=== PATIENT | male | born 1955 | race Caucasian/White ===

== ENCOUNTER 2021-04-27 23:34 | Inpatient (IN) ==
[2021-04-27] MEDS ORDERED: ROCURONIUM 100 MG/10 ML VIAL IV ONE (23:41)
[2021-04-27] MEDS ORDERED: ROCURONIUM 100 MG/10 ML VIAL IV STA (23:54)
[2021-04-27] MEDS ORDERED: ETOMIDATE 20 MG/10 ML VIAL IV STA (23:54)
[2021-04-28 00:29] LABS: ABG Base Excess -2.3 MMOL/L (-2.5-2.5); ABG HCO3 25.8 MMOL/L (20-26); ABG Oxygen Saturation 97.6 % (95-100); ABG PH 7.223 (7.35-7.45); ABG PO2 127.9 MM HG (80-95); ABG TCO2 27.7 MMOL/L (23-27)
[2021-04-28] MEDS ORDERED: fentaNYL 100 MCG/2 ML VIAL IV STA (00:42)
[2021-04-28 00:52] LABS: Bilirubin,Total 0.6 MG/DL (0.20-1.00); Calcium 7.6 MG/DL (8.5-10.1); Osmolality,Calculated 282.7 MOS/KG (273-304); Total Protein 6.2 G/DL (6.4-8.2)
[2021-04-28 01:05] LABS: Basophils # 0.1 10*3/uL (0.0-0.2); Basophils % 0.3 % (0.0-0.8); Eosinophils # 0.1 10*3/uL (0.0-0.87); Eosinophils % 0.3 % (0.00-10.9); Hematocrit 26.2 VOL% (42.0-52.0); Hemoglobin 8.1 GM/DL (14.0-18.0); Immature Granulocytes % 3.3 %; Immature Granulocytes Absolute 1.03 #; Lymphocytes # 9.1 10*3/uL (1.4-4.0); Lymphocytes % 28.6 % (21.2-54.2); Mean Corpuscular HGB Conc 30.9 GM/DL (32-36); Mean Corpuscular Volume 113.9 FL (87-102); Mean Platelet Volume 12.6 FL (9.6-12.0); NRBC # 0.14 10*3/uL; Neutrophils % 60.5 % (38.7-73.9); Platelet Count 106 T/CUMM (130-400); Red Cell Distribution Width 18.3 % (9.3-17.3); White Blood Count 31.6 T/CUMM (4-12)
[2021-04-28 01:11] LABS: INR 1.2; PT Patient Result 13.3 SECS (10.5-12.0); Partial Thromboplastin Time 25.9 SECS (23.9-33.8)
[2021-04-28 01:12] LABS: Bilirubin,Urine Negative (Negative); Blood, Urine Negative (Negative); Glucose,Urine (UA) Negative (Negative); Hyaline Casts,Urine 6 /LPF (0-3); Ketones,Urine Negative (Negative); Mucus,Urine Occasional /LPF (Occasional); Nitrite,Urine Negative (Negative); Protein,Urine Negative; RBC,Urine 1 /HPF (0-4); Sperm,Urine Occasional /HPF (Negative); Urine Appearance CLEAR (Clear); Urine Color Yellow (Yellow); Urine Specific Gravity 1.008 (1.001-1.035); Urine Urobilinogen < 2.0 EU/DL (0.2-1.0)
[2021-04-28] MEDS ORDERED: ROCURONIUM 100 MG/10 ML VIAL IV STA (01:15)
[2021-04-28] MEDS ORDERED: PIPERACILLIN/TAZOBACTAM 3,375 MG in SODIUM CHLORIDE 0.9% 100 ML IV STA (01:37)
[2021-04-28] MEDS ORDERED: ONDANSETRON 4 MG/2 ML VIAL IV PRN (01:46)
[2021-04-28] MEDS ORDERED: ALBUTEROL 2.5 MG/3 ML NEB RESP TX PRN (01:46)
[2021-04-28 02:25] LABS: Eosinophils 1 % (0-10); Lymphocytes 20 % (20-55); Segmented Neutrophils 72 % (50-85); Total Cells Counted 100
[2021-04-28 02:26] LABS: Macrocytosis 1+; Platelet Estimate Normal; Polychromasia 1+
[2021-04-28 02:27] LABS: Anisocytosis 1+; Stomatocytes Few
[2021-04-28] MEDS ORDERED: AZITHROMYCIN INJ 500 MG in SODIUM CHLORIDE 0.9% 250 ML IV ONE (02:28)
[2021-04-28] MEDS ORDERED: DIGOXIN 0.5 MG/2 ML AMP IV ONE (02:28)
[2021-04-28] MEDS ORDERED: methylPREDNISolone SOD SUC 40 MG/1 ML VIAL IV SCH (02:30)
[2021-04-28] MEDS ORDERED: SODIUM CHLOR 0.45% KCL 20 MEQ 20 MEQ/1,000 ML BAG IV SCH (02:30)
[2021-04-28] MEDS: PANTOPRAZOLE 40 MG VIAL IV SCH (02:55)
[2021-04-28] MEDS: cefTRIAXone 1,000 MG in SODIUM CHLORIDE 0.9% 100 ML IV SCH (03:03)
[2021-04-28] MEDS ORDERED: SODIUM CHLORIDE 0.9% 1,000 ML IV ONE (03:15)
[2021-04-28] MEDS: ENOXAPARIN 40 MG/0.4 ML SYRINGE SUBCUT SCH (03:41)
[2021-04-28 04:02] LABS: Basophils % 0.1 % (0.0-0.8); Eosinophils % 0.1 % (0.00-10.9); Hematocrit 24.6 VOL% (42.0-52.0); Hemoglobin 7.6 GM/DL (14.0-18.0); Immature Granulocytes % 1.7 %; Immature Granulocytes Absolute 0.38 #; Lymphocytes # 1.8 10*3/uL (1.4-4.0); Lymphocytes % 8.2 % (21.2-54.2); Mean Corpuscular HGB Conc 30.9 GM/DL (32-36); Mean Corpuscular Volume 112.3 FL (87-102); Mean Platelet Volume 11.3 FL (9.6-12.0); Monocytes % 7.4 % (1.7-12.7); NRBC # 0.04 10*3/uL; Neutrophils % 82.5 % (38.7-73.9); Platelet Count 89 T/CUMM (130-400); Red Blood Count 2.19 MC/CUMM (3.8-5.5); Red Cell Distribution Width 18.3 % (9.3-17.3); White Blood Count 21.9 T/CUMM (4-12)
[2021-04-28 04:07] LABS: Albumin 2.8 G/DL (3.4-5.0); Bilirubin,Total 1.1 MG/DL (0.20-1.00); Calcium 7.8 MG/DL (8.5-10.1); Osmolality,Calculated 277.7 MOS/KG (273-304); Potassium 4.4 MMOL/L (3.5-5.1); Total Protein 6.6 G/DL (6.4-8.2)
[2021-04-28 04:31] LABS: Hypochromasia 1+; Lymphocytes 10 % (20-55); Segmented Neutrophils 84 % (50-85); Total Cells Counted 100
[2021-04-28 04:32] LABS: Anisocytosis 1+; Macrocytosis 1+; Polychromasia Slight; Tear Drop Cells Slight
[2021-04-28] MEDS ORDERED: MAGNESIUM SULF RIDER 4 GM/100 ML PREMIX IV ONE (04:32)
[2021-04-28 04:33] LABS: Platelet Estimate Decreased
[2021-04-28 04:34] LABS: ABG Base Excess -1.6 MMOL/L (-2.5-2.5); ABG Oxygen Saturation 92.5 % (95-100); ABG PO2 81.2 MM HG (80-95); ABG TCO2 26.4 MMOL/L (23-27)
[2021-04-28 04:37] LABS: ABG PCO2 70.8 MM HG (35-48); ABG PH 7.197 (7.35-7.45)
[2021-04-28] MEDS: MIDAZOLAM 100 MG in SODIUM CHLORIDE 0.9% 80 ML IV PRN ×2 (05:02→16:30)
[2021-04-28] MEDS: SODIUM CHLORIDE 0.45% 1,000 ML IV SCH ×2 (05:02→15:26)
[2021-04-28] MEDS ORDERED: ROCURONIUM 100 MG/10 ML VIAL IV PRN (07:31)
[2021-04-28] MEDS ORDERED: MAGNESIUM SULF RIDER 4 GM/100 ML PREMIX IV PRN (07:49)
[2021-04-28] MEDS ORDERED: SODIUM CHLORIDE 0.9% 1,000 ML IV PRN (08:16)
[2021-04-28] MEDS: ROCURONIUM 500 MG in SODIUM CHLORIDE 0.9% 500 ML IV PRN (08:20)
[2021-04-28] MEDS: methylPREDNISolone SOD SUC 40 MG/1 ML VIAL IV SCH ×3 (08:50→20:59)
[2021-04-28] MEDS ORDERED: PHENYLEPHRINE DRIP 40 MG/250 ML PREMIX IV ONE (09:06)
[2021-04-28 09:10] LABS: ABG Base Excess -0.1 MMOL/L (-2.5-2.5); ABG HCO3 26.2 MMOL/L (20-26); ABG Oxygen Saturation 99.1 % (95-100); ABG PCO2 51.9 MM HG (35-48); ABG PH 7.321 (7.35-7.45); ABG PO2 207.2 MM HG (80-95); ABG TCO2 27.8 MMOL/L (23-27)
[2021-04-28] MEDS: PHENYLEPHRINE DRIP 40 MG/250 ML PREMIX IV PRN ×2 (09:36→22:30)
[2021-04-28 15:28] LABS: Hematocrit 25.9 VOL% (42.0-52.0); Hemoglobin 8.4 GM/DL (14.0-18.0)
[2021-04-28] MEDS: DESITIN 4OZ/NYSTATIN 15 GRAM MIXTURE PASTE TOP SCH (21:03)
[2021-04-28] MEDS: AZITHROMYCIN INJ 250 MG in SODIUM CHLORIDE 0.9% 250 ML IV SCH (21:03)
[2021-04-29] MEDS: PANTOPRAZOLE 40 MG VIAL IV SCH (02:10)
[2021-04-29] MEDS: SODIUM CHLORIDE 0.45% 1,000 ML IV SCH ×4 (02:19→22:41)
[2021-04-29] MEDS: cefTRIAXone 1,000 MG in SODIUM CHLORIDE 0.9% 100 ML IV SCH (02:20)
[2021-04-29] MEDS: methylPREDNISolone SOD SUC 40 MG/1 ML VIAL IV SCH ×4 (02:50→20:20)
[2021-04-29] MEDS: ENOXAPARIN 40 MG/0.4 ML SYRINGE SUBCUT SCH (02:57)
[2021-04-29 03:08] LABS: ABG Base Excess 0.4 MMOL/L (-2.5-2.5); ABG HCO3 25.8 MMOL/L (20-26); ABG PH 7.367 (7.35-7.45); ABG PO2 96.8 MM HG (80-95); ABG TCO2 27.2 MMOL/L (23-27)
[2021-04-29 03:57] LABS: Basophils % 0.1 % (0.0-0.8); Hematocrit 22.7 VOL% (42.0-52.0); Hemoglobin 7.2 GM/DL (14.0-18.0); Immature Granulocytes % 2.7 %; Immature Granulocytes Absolute 0.58 #; Lymphocytes # 1.5 10*3/uL (1.4-4.0); Mean Corpuscular HGB Conc 31.7 GM/DL (32-36); Mean Corpuscular Volume 108.6 FL (87-102); Mean Platelet Volume 10.9 FL (9.6-12.0); Monocytes % 3.2 % (1.7-12.7); NRBC # 0.04 10*3/uL; Platelet Count 102 T/CUMM (130-400); Red Blood Count 2.09 MC/CUMM (3.8-5.5); Red Cell Distribution Width 18.4 % (9.3-17.3); White Blood Count 21.5 T/CUMM (4-12)
[2021-04-29 04:19] LABS: Albumin 2.5 G/DL (3.4-5.0); Bilirubin,Total 0.5 MG/DL (0.20-1.00); Calcium 7.6 MG/DL (8.5-10.1); Osmolality,Calculated 277.8 MOS/KG (273-304); Potassium 4.4 MMOL/L (3.5-5.1); Total Protein 5.8 G/DL (6.4-8.2)
[2021-04-29 07:22] LABS: Band Neutrophils 9 % (0-10); Lymphocytes 8 % (20-55); Nucleated Red Blood Cells 1 (0-5); Platelet Estimate Adequate; Segmented Neutrophils 80 % (50-85); Smudge Cells Few; Total Cells Counted 100
[2021-04-29 07:23] LABS: Anisocytosis 3+; Macrocytosis 1+; Polychromasia Slight
[2021-04-29] MEDS: MIDAZOLAM 100 MG in SODIUM CHLORIDE 0.9% 80 ML IV PRN ×2 (09:13→21:30)
[2021-04-29] MEDS: DESITIN 4OZ/NYSTATIN 15 GRAM MIXTURE PASTE TOP SCH ×2 (09:20→20:35)
[2021-04-29] MEDS: ROCURONIUM 500 MG in SODIUM CHLORIDE 0.9% 500 ML IV PRN ×2 (10:45→20:20)
[2021-04-29] MEDS ORDERED: MAGNESIUM HYDROXIDE SUSP 30 ML UDCUP PO PRN (12:00)
[2021-04-29] MEDS: DOCUSATE SODIUM 100 MG/10 ML UDCUP PO SCH (12:33)
[2021-04-29] MEDS: AZITHROMYCIN INJ 250 MG in SODIUM CHLORIDE 0.9% 250 ML IV SCH (20:35)
[2021-04-30] MEDS: INSULIN REGULAR 100 UNIT/ML SUBCUT SCH ×4 (01:09→18:06)
[2021-04-30] MEDS: SODIUM CHLORIDE 0.45% 1,000 ML IV SCH ×5 (01:20→23:20)
[2021-04-30] MEDS: PANTOPRAZOLE 40 MG VIAL IV SCH (01:21)
[2021-04-30] MEDS: cefTRIAXone 1,000 MG in SODIUM CHLORIDE 0.9% 100 ML IV SCH (01:25)
[2021-04-30] MEDS: methylPREDNISolone SOD SUC 40 MG/1 ML VIAL IV SCH ×4 (03:20→20:58)
[2021-04-30] MEDS: ENOXAPARIN 40 MG/0.4 ML SYRINGE SUBCUT SCH (03:37)
[2021-04-30 03:42] LABS: Basophils % 0.1 % (0.0-0.8); Hematocrit 30.3 VOL% (42.0-52.0); Immature Granulocytes % 3.4 %; Immature Granulocytes Absolute 0.69 #; Lymphocytes # 0.9 10*3/uL (1.4-4.0); Lymphocytes % 4.7 % (21.2-54.2); Mean Corpuscular Volume 102.4 FL (87-102); Mean Platelet Volume 11.5 FL (9.6-12.0); Monocytes % 3.4 % (1.7-12.7); NRBC # 0.07 10*3/uL; Neutrophils % 88.4 % (38.7-73.9); Platelet Count 112 T/CUMM (130-400); Red Cell Distribution Width 20.1 % (9.3-17.3); White Blood Count 20.2 T/CUMM (4-12)
[2021-04-30 03:44] LABS: Hemoglobin 9.7 GM/DL (14.0-18.0); Red Blood Count 2.96 MC/CUMM (3.8-5.5)
[2021-04-30 03:59] LABS: Albumin 2.5 G/DL (3.4-5.0); Calcium 7.9 MG/DL (8.5-10.1); Osmolality,Calculated 285.4 MOS/KG (273-304); Potassium 4.7 MMOL/L (3.5-5.1); Total Protein 6.1 G/DL (6.4-8.2)
[2021-04-30 04:04] LABS: Anisocytosis 2+; Band Neutrophils 10 % (0-10); Lymphocytes 4 % (20-55); Myelocytes 1 %; Nucleated Red Blood Cells 1 (0-5); Platelet Estimate Adequate; Segmented Neutrophils 80 % (50-85); Total Cells Counted 100
[2021-04-30 04:05] LABS: Macrocytosis 1+; Polychromasia Slight
[2021-04-30 04:23] LABS: ABG Base Excess 1.3 MMOL/L (-2.5-2.5); ABG HCO3 25.6 MMOL/L (20-26); ABG Oxygen Saturation 99.8 % (95-100); ABG PCO2 47.9 MM HG (35-48); ABG PH 7.362 (7.35-7.45); ABG TCO2 24.8 MMOL/L (23-27); Allen Test Positive; Pt O2 Delivery Device Ventilator
[2021-04-30] MEDS: DOCUSATE SODIUM 100 MG/10 ML UDCUP PO SCH (09:28)
[2021-04-30] MEDS: DESITIN 4OZ/NYSTATIN 15 GRAM MIXTURE PASTE TOP SCH ×2 (09:28→21:40)
[2021-04-30] MEDS ORDERED: MORPHINE 2 MG/1 ML SYRINGE ONE (09:37)
[2021-04-30] MEDS: MORPHINE 2 MG/1 ML SYRINGE IV PRN ×3 (09:40→22:14)
[2021-04-30] MEDS: MIDAZOLAM 100 MG in SODIUM CHLORIDE 0.9% 80 ML IV PRN ×2 (09:56→23:02)
[2021-04-30] MEDS: ROCURONIUM 500 MG in SODIUM CHLORIDE 0.9% 500 ML IV PRN (10:09)
[2021-04-30 10:32] LABS: Allen Test Positive; Pt O2 Delivery Device Ventilator
[2021-04-30 10:38] LABS: ABG Base Excess 1.6 MMOL/L (-2.5-2.5); ABG HCO3 25.8 MMOL/L (20-26); ABG Oxygen Saturation 96.7 % (95-100); ABG PCO2 55.3 MM HG (35-48); ABG PH 7.322 (7.35-7.45); ABG PO2 92.7 MM HG (80-95); ABG TCO2 26.2 MMOL/L (23-27)
[2021-04-30 12:48] LABS: ABG Base Excess 2.8 MMOL/L (-2.5-2.5); ABG HCO3 26.9 MMOL/L (20-26); ABG Oxygen Saturation 96.9 % (95-100); ABG PH 7.376 (7.35-7.45); ABG PO2 88.6 MM HG (80-95); ABG TCO2 26.1 MMOL/L (23-27); Allen Test Positive; Pt O2 Delivery Device Ventilator
[2021-04-30] MEDS: AZITHROMYCIN INJ 250 MG in SODIUM CHLORIDE 0.9% 250 ML IV SCH (21:10)
[2021-05-01] MEDS: INSULIN REGULAR 100 UNIT/ML SUBCUT SCH ×4 (00:11→17:34)
[2021-05-01] MEDS: PANTOPRAZOLE 40 MG VIAL IV SCH (02:00)
[2021-05-01] MEDS: methylPREDNISolone SOD SUC 40 MG/1 ML VIAL IV SCH ×4 (02:03→20:40)
[2021-05-01] MEDS: ENOXAPARIN 40 MG/0.4 ML SYRINGE SUBCUT SCH (02:05)
[2021-05-01] MEDS: cefTRIAXone 1,000 MG in SODIUM CHLORIDE 0.9% 100 ML IV SCH (02:05)
[2021-05-01] MEDS: SODIUM CHLORIDE 0.45% 1,000 ML IV SCH ×5 (03:09→23:26)
[2021-05-01] MEDS: MORPHINE 2 MG/1 ML SYRINGE IV PRN ×4 (03:28→20:14)
[2021-05-01 04:07] LABS: ABG Base Excess 2.6 MMOL/L (-2.5-2.5); ABG HCO3 26.7 MMOL/L (20-26); ABG Oxygen Saturation 97.1 % (95-100); ABG PCO2 41.2 MM HG (35-48); ABG PH 7.427 (7.35-7.45); ABG TCO2 24.9 MMOL/L (23-27)
[2021-05-01 04:32] LABS: Basophils % 0.1 % (0.0-0.8); Hematocrit 28.9 VOL% (42.0-52.0); Hemoglobin 9.2 GM/DL (14.0-18.0); Immature Granulocytes % 2.5 %; Immature Granulocytes Absolute 0.45 #; Lymphocytes # 0.9 10*3/uL (1.4-4.0); Lymphocytes % 5.1 % (21.2-54.2); Mean Corpuscular HGB Conc 31.8 GM/DL (32-36); Mean Corpuscular Volume 105.1 FL (87-102); Mean Platelet Volume 11.8 FL (9.6-12.0); Monocytes % 3.2 % (1.7-12.7); NRBC # 0.06 10*3/uL; Neutrophils % 89.1 % (38.7-73.9); Platelet Count 120 T/CUMM (130-400); Red Blood Count 2.75 MC/CUMM (3.8-5.5); Red Cell Distribution Width 20.6 % (9.3-17.3); White Blood Count 17.7 T/CUMM (4-12)
[2021-05-01 04:54] LABS: Calcium 7.6 MG/DL (8.5-10.1); Osmolality,Calculated 287.3 MOS/KG (273-304); Potassium 4.6 MMOL/L (3.5-5.1)
[2021-05-01 04:57] LABS: Alanine Aminotransferase 28 U/L (16-61); Albumin 2.3 G/DL (3.4-5.0); Alkaline Phosphatase 97 U/L (45-117); Aspartate Amino Transferase 25 U/L (0-37); Bilirubin,Total < 0.39 MG/DL (0.20-1.00); Blood Urea Nitrogen 19 MG/DL (7-18); Calcium 7.9 MG/DL (8.5-10.1); Carbon Dioxide 30 MMOL/L (21-32); Estimated Glom Filtration Rate 111 ML/MIN; Glucose 203 MG/DL (74-106); Osmolality,Calculated 284.5 MOS/KG (273-304); Potassium 4.4 MMOL/L (3.5-5.1); Sodium 139 MMOL/L (136-145); Total Protein 5.5 G/DL (6.4-8.2)
[2021-05-01] MEDS: ROCURONIUM 500 MG in SODIUM CHLORIDE 0.9% 500 ML IV PRN (08:06)
[2021-05-01] MEDS: DOCUSATE SODIUM 100 MG/10 ML UDCUP PO SCH (08:06)
[2021-05-01] MEDS: DESITIN 4OZ/NYSTATIN 15 GRAM MIXTURE PASTE TOP SCH ×2 (08:07→20:57)
[2021-05-01 08:45] LABS: Anisocytosis 2+; Band Neutrophils 9 % (0-10); Lymphocytes 7 % (20-55); Macrocytosis 2+; Myelocytes 1 %; Platelet Estimate Adequate; Segmented Neutrophils 79 % (50-85); Total Cells Counted 100
[2021-05-01] MEDS ORDERED: SODIUM PHOSPHATE INJ 30 MMOL in SODIUM CHLORIDE 0.9% 250 ML IV ONE (12:00)
[2021-05-01] MEDS: MIDAZOLAM 100 MG in SODIUM CHLORIDE 0.9% 80 ML IV PRN (12:43)
[2021-05-01] MEDS ORDERED: cloNIDine 0.3 MG/24 HR PATCH TRANSDERM SCH (14:00)
[2021-05-01] MEDS: ENALAPRIL 2.5 MG/2 ML VIAL IV SCH ×2 (14:15→20:24)
[2021-05-01] MEDS: AZITHROMYCIN INJ 250 MG in SODIUM CHLORIDE 0.9% 250 ML IV SCH (20:57)
[2021-05-01] MEDS ORDERED: MORPHINE 2 MG/1 ML SYRINGE IV ONE (21:44)
[2021-05-02] MEDS: INSULIN REGULAR 100 UNIT/ML SUBCUT SCH ×4 (00:45→17:47)
[2021-05-02] MEDS: MIDAZOLAM 100 MG in SODIUM CHLORIDE 0.9% 80 ML IV PRN ×2 (01:29→15:32)
[2021-05-02] MEDS: methylPREDNISolone SOD SUC 40 MG/1 ML VIAL IV SCH ×4 (01:45→21:26)
[2021-05-02] MEDS: PANTOPRAZOLE 40 MG VIAL IV SCH (01:50)
[2021-05-02] MEDS: ENALAPRIL 2.5 MG/2 ML VIAL IV SCH ×2 (02:04→10:35)
[2021-05-02] MEDS: cefTRIAXone 1,000 MG in SODIUM CHLORIDE 0.9% 100 ML IV SCH (02:04)
[2021-05-02] MEDS: MORPHINE 2 MG/1 ML SYRINGE IV PRN ×2 (02:05→23:07)
[2021-05-02] MEDS: ENOXAPARIN 40 MG/0.4 ML SYRINGE SUBCUT SCH (02:42)
[2021-05-02 04:23] LABS: ABG Base Excess 3.3 MMOL/L (-2.5-2.5); ABG Oxygen Saturation 98.5 % (95-100); ABG PCO2 37.4 MM HG (35-48); ABG PH 7.476 (7.35-7.45); ABG PO2 150.6 MM HG (80-95); ABG TCO2 28.1 MMOL/L (23-27)
[2021-05-02] MEDS: ROCURONIUM 500 MG in SODIUM CHLORIDE 0.9% 500 ML IV PRN (04:30)
[2021-05-02 05:34] LABS: Basophils % 0.1 % (0.0-0.8); Hemoglobin 9.1 GM/DL (14.0-18.0); Immature Granulocytes % 2.4 %; Immature Granulocytes Absolute 0.39 #; Lymphocytes # 0.8 10*3/uL (1.4-4.0); Lymphocytes % 5.1 % (21.2-54.2); Mean Corpuscular HGB Conc 31.4 GM/DL (32-36); Mean Corpuscular Volume 106.2 FL (87-102); Mean Platelet Volume 11.4 FL (9.6-12.0); Monocytes % 3.4 % (1.7-12.7); NRBC # 0.08 10*3/uL; Platelet Count 131 T/CUMM (130-400); Red Blood Count 2.73 MC/CUMM (3.8-5.5); White Blood Count 16.3 T/CUMM (4-12)
[2021-05-02 06:01] LABS: Alanine Aminotransferase 48 U/L (16-61); Albumin 2.2 G/DL (3.4-5.0); Alkaline Phosphatase 90 U/L (45-117); Aspartate Amino Transferase 42 U/L (0-37); Bilirubin,Total < 0.39 MG/DL (0.20-1.00); Blood Urea Nitrogen 19 MG/DL (7-18); Calcium 7.9 MG/DL (8.5-10.1); Carbon Dioxide 30 MMOL/L (21-32); Estimated Glom Filtration Rate 111 ML/MIN; Glucose 232 MG/DL (74-106); Osmolality,Calculated 291.1 MOS/KG (273-304); Potassium 4.4 MMOL/L (3.5-5.1); Sodium 142 MMOL/L (136-145); Total Protein 5.2 G/DL (6.4-8.2)
[2021-05-02 06:06] LABS: Lymphocytes 4 % (20-55); Segmented Neutrophils 94 % (50-85); Total Cells Counted 100
[2021-05-02] MEDS: SODIUM CHLORIDE 0.45% 1,000 ML IV SCH (06:24)
[2021-05-02] MEDS: DESITIN 4OZ/NYSTATIN 15 GRAM MIXTURE PASTE TOP SCH ×2 (08:28→21:14)
[2021-05-02] MEDS: DOCUSATE SODIUM 100 MG/10 ML UDCUP PO SCH (08:35)
[2021-05-02] MEDS ORDERED: FUROSEMIDE 40 MG/4 ML VIAL IV ONE (08:41)
[2021-05-02] MEDS ORDERED: ENALAPRIL 2.5 MG/2 ML VIAL IV SCH (09:00)
[2021-05-02] MEDS: INSULIN GLARGINE 100 UNIT/ML SUBCUT SCH (09:32)
[2021-05-02] MEDS: AZITHROMYCIN INJ 250 MG in SODIUM CHLORIDE 0.9% 250 ML IV SCH (21:31)
[2021-05-03] MEDS: INSULIN REGULAR 100 UNIT/ML SUBCUT SCH ×4 (00:02→17:20)
[2021-05-03] MEDS: PANTOPRAZOLE 40 MG VIAL IV SCH (01:30)
[2021-05-03] MEDS: methylPREDNISolone SOD SUC 40 MG/1 ML VIAL IV SCH ×4 (01:36→20:43)
[2021-05-03] MEDS: cefTRIAXone 1,000 MG in SODIUM CHLORIDE 0.9% 100 ML IV SCH (01:38)
[2021-05-03] MEDS: ENOXAPARIN 40 MG/0.4 ML SYRINGE SUBCUT SCH (02:52)
[2021-05-03 04:12] LABS: Basophils % 0.2 % (0.0-0.8); Hematocrit 30.2 VOL% (42.0-52.0); Hemoglobin 9.5 GM/DL (14.0-18.0); Immature Granulocytes % 1.6 %; Immature Granulocytes Absolute 0.31 #; Lymphocytes # 0.8 10*3/uL (1.4-4.0); Lymphocytes % 4.2 % (21.2-54.2); Mean Corpuscular HGB Conc 31.5 GM/DL (32-36); Mean Corpuscular Volume 107.5 FL (87-102); Mean Platelet Volume 10.6 FL (9.6-12.0); Monocytes % 3.4 % (1.7-12.7); NRBC # 0.04 10*3/uL; Neutrophils % 90.6 % (38.7-73.9); Platelet Count 148 T/CUMM (130-400); Red Blood Count 2.81 MC/CUMM (3.8-5.5); Red Cell Distribution Width 20.9 % (9.3-17.3); White Blood Count 19.1 T/CUMM (4-12)
[2021-05-03 04:15] LABS: ABG PCO2 46.6 MM HG (35-48); ABG PH 7.427 (7.35-7.45); ABG PO2 87.1 MM HG (80-95); ABG TCO2 31.5 MMOL/L (23-27)
[2021-05-03 04:24] LABS: Calcium 8.5 MG/DL (8.5-10.1); Osmolality,Calculated 290.4 MOS/KG (273-304); Potassium 4.5 MMOL/L (3.5-5.1)
[2021-05-03 04:48] LABS: Band Neutrophils 3 % (0-10); Lymphocytes 6 % (20-55); Platelet Estimate Normal; Segmented Neutrophils 88 % (50-85); Total Cells Counted 100
[2021-05-03] MEDS: DOCUSATE SODIUM 100 MG/10 ML UDCUP PO SCH (08:11)
[2021-05-03] MEDS: INSULIN GLARGINE 100 UNIT/ML SUBCUT SCH (08:15)
[2021-05-03] MEDS: DESITIN 4OZ/NYSTATIN 15 GRAM MIXTURE PASTE TOP SCH ×2 (08:32→20:43)
[2021-05-03] MEDS: MIDAZOLAM 100 MG in SODIUM CHLORIDE 0.9% 80 ML IV PRN (15:15)
[2021-05-03] MEDS: MORPHINE 2 MG/1 ML SYRINGE IV PRN ×2 (18:09→22:13)
[2021-05-04] MEDS: INSULIN REGULAR 100 UNIT/ML SUBCUT SCH ×4 (00:33→18:12)
[2021-05-04] MEDS: MIDAZOLAM 100 MG in SODIUM CHLORIDE 0.9% 80 ML IV PRN ×2 (02:50→16:36)
[2021-05-04] MEDS: PANTOPRAZOLE 40 MG VIAL IV SCH (02:55)
[2021-05-04] MEDS: cefTRIAXone 1,000 MG in SODIUM CHLORIDE 0.9% 100 ML IV SCH (02:57)
[2021-05-04] MEDS: methylPREDNISolone SOD SUC 40 MG/1 ML VIAL IV SCH ×4 (02:58→21:10)
[2021-05-04] MEDS: ENOXAPARIN 40 MG/0.4 ML SYRINGE SUBCUT SCH (03:03)
[2021-05-04 04:22] LABS: ABG Base Excess 5.3 MMOL/L (-2.5-2.5); ABG HCO3 29.1 MMOL/L (20-26); ABG Oxygen Saturation 94.4 % (95-100); ABG PCO2 49.5 MM HG (35-48); ABG PH 7.407 (7.35-7.45); ABG PO2 75.1 MM HG (80-95); ABG TCO2 27.4 MMOL/L (23-27); Allen Test Positive; Pt O2 Delivery Device Ventilator
[2021-05-04 05:53] LABS: Basophils % 0.1 % (0.0-0.8); Hemoglobin 9.5 GM/DL (14.0-18.0); Immature Granulocytes % 1.4 %; Lymphocytes # 0.7 10*3/uL (1.4-4.0); Lymphocytes % 3.1 % (21.2-54.2); Mean Corpuscular HGB Conc 31.7 GM/DL (32-36); Mean Platelet Volume 11.4 FL (9.6-12.0); NRBC # 0.03 10*3/uL; Neutrophils % 91.4 % (38.7-73.9); Platelet Count 183 T/CUMM (130-400); Red Blood Count 2.83 MC/CUMM (3.8-5.5); White Blood Count 21.8 T/CUMM (4-12)
[2021-05-04 06:15] LABS: Calcium 8.5 MG/DL (8.5-10.1); Lymphocytes 3 % (20-55); Osmolality,Calculated 296.1 MOS/KG (273-304); Potassium 4.7 MMOL/L (3.5-5.1); Segmented Neutrophils 90 % (50-85); Total Cells Counted 100
[2021-05-04 06:16] LABS: Hypochromasia 1+; Platelet Estimate Adequate
[2021-05-04] MEDS: MAGNESIUM SULF RIDER 2 GM/50 ML PREMIX IV PRN (06:39)
[2021-05-04] MEDS ORDERED: MAGNESIUM SULF RIDER 4 GM/100 ML PREMIX IV ONE (08:14)
[2021-05-04] MEDS: DOCUSATE SODIUM 100 MG/10 ML UDCUP PO SCH (08:17)
[2021-05-04] MEDS: DESITIN 4OZ/NYSTATIN 15 GRAM MIXTURE PASTE TOP SCH ×2 (08:17→21:12)
[2021-05-04] MEDS: INSULIN GLARGINE 100 UNIT/ML SUBCUT SCH (08:18)
[2021-05-04] MEDS ORDERED: FUROSEMIDE 40 MG/4 ML VIAL IV ONE (08:42)
[2021-05-04] MEDS ORDERED: MAGNESIUM SULF RIDER 2 GM/50 ML PREMIX IV ONE (09:46)
[2021-05-05] MEDS: MORPHINE 2 MG/1 ML SYRINGE IV PRN ×3 (00:12→14:18)
[2021-05-05] MEDS: INSULIN REGULAR 100 UNIT/ML SUBCUT SCH ×4 (00:14→17:54)
[2021-05-05] MEDS: cefTRIAXone 1,000 MG in SODIUM CHLORIDE 0.9% 100 ML IV SCH (01:48)
[2021-05-05] MEDS: PANTOPRAZOLE 40 MG VIAL IV SCH (01:49)
[2021-05-05] MEDS: MIDAZOLAM 100 MG in SODIUM CHLORIDE 0.9% 80 ML IV PRN ×2 (01:53→13:53)
[2021-05-05] MEDS: methylPREDNISolone SOD SUC 40 MG/1 ML VIAL IV SCH ×4 (01:56→21:03)
[2021-05-05] MEDS: ENOXAPARIN 40 MG/0.4 ML SYRINGE SUBCUT SCH (02:02)
[2021-05-05 04:18] LABS: ABG Base Excess 9.4 MMOL/L (-2.5-2.5); ABG PCO2 53.5 MM HG (35-48); ABG PH 7.434 (7.35-7.45); ABG PO2 71.2 MM HG (80-95); ABG TCO2 36.7 MMOL/L (23-27); Allen Test Positive; Pt O2 Delivery Device Ventilator
[2021-05-05 05:32] LABS: Basophils % 0.1 % (0.0-0.8); Hematocrit 32.4 VOL% (42.0-52.0); Hemoglobin 10.4 GM/DL (14.0-18.0); Immature Granulocytes % 1.3 %; Immature Granulocytes Absolute 0.22 #; Lymphocytes # 0.5 10*3/uL (1.4-4.0); Lymphocytes % 3.1 % (21.2-54.2); Mean Corpuscular HGB Conc 32.1 GM/DL (32-36); Mean Corpuscular Volume 106.2 FL (87-102); Mean Platelet Volume 11.2 FL (9.6-12.0); Monocytes % 5.3 % (1.7-12.7); NRBC # 0.02 10*3/uL; Neutrophils % 90.2 % (38.7-73.9); Platelet Count 175 T/CUMM (130-400); Red Blood Count 3.05 MC/CUMM (3.8-5.5); Red Cell Distribution Width 21.2 % (9.3-17.3); White Blood Count 16.9 T/CUMM (4-12)
[2021-05-05 05:51] LABS: Osmolality,Calculated 298.4 MOS/KG (273-304); Potassium 4.9 MMOL/L (3.5-5.1)
[2021-05-05 05:54] LABS: Lymphocytes 4 % (20-55); Segmented Neutrophils 91 % (50-85); Total Cells Counted 100
[2021-05-05 05:55] LABS: Hypochromasia 1+; Microcytosis 1+; Platelet Estimate Adequate
[2021-05-05] MEDS: DOCUSATE SODIUM 100 MG/10 ML UDCUP PO SCH (08:27)
[2021-05-05] MEDS: DESITIN 4OZ/NYSTATIN 15 GRAM MIXTURE PASTE TOP SCH ×2 (08:27→21:06)
[2021-05-05] MEDS: INSULIN GLARGINE 100 UNIT/ML SUBCUT SCH (08:31)
[2021-05-05] MEDS ORDERED: FUROSEMIDE 40 MG/4 ML VIAL IV ONE (09:42)
[2021-05-05] MEDS: ENALAPRIL 2.5 MG/2 ML VIAL IV PRN (17:30)
[2021-05-06] MEDS: INSULIN REGULAR 100 UNIT/ML SUBCUT SCH ×4 (00:35→18:13)
[2021-05-06] MEDS: PANTOPRAZOLE 40 MG VIAL IV SCH (02:12)
[2021-05-06] MEDS: methylPREDNISolone SOD SUC 40 MG/1 ML VIAL IV SCH ×4 (02:15→21:10)
[2021-05-06] MEDS: ENOXAPARIN 40 MG/0.4 ML SYRINGE SUBCUT SCH (02:15)
[2021-05-06] MEDS: cefTRIAXone 1,000 MG in SODIUM CHLORIDE 0.9% 100 ML IV SCH (02:18)
[2021-05-06 03:15] LABS: ABG Base Excess 9.3 MMOL/L (-2.5-2.5); ABG Oxygen Saturation 95.3 % (95-100); ABG PO2 83.1 MM HG (80-95); ABG TCO2 34.3 MMOL/L (23-27)
[2021-05-06 03:18] LABS: ABG PCO2 69.7 MM HG (35-48)
[2021-05-06] MEDS: MIDAZOLAM 100 MG in SODIUM CHLORIDE 0.9% 80 ML IV PRN ×2 (04:31→15:52)
[2021-05-06 04:57] LABS: Basophils % 0.1 % (0.0-0.8); Hemoglobin 10.7 GM/DL (14.0-18.0); Immature Granulocytes % 1.2 %; Immature Granulocytes Absolute 0.22 #; Lymphocytes # 0.6 10*3/uL (1.4-4.0); Mean Corpuscular HGB Conc 30.6 GM/DL (32-36); Mean Corpuscular Volume 108.7 FL (87-102); Mean Platelet Volume 11.6 FL (9.6-12.0); Monocytes % 5.9 % (1.7-12.7); NRBC # 0.02 10*3/uL; Neutrophils % 89.8 % (38.7-73.9); Platelet Count 185 T/CUMM (130-400); Red Blood Count 3.22 MC/CUMM (3.8-5.5); Red Cell Distribution Width 20.8 % (9.3-17.3); White Blood Count 18.4 T/CUMM (4-12)
[2021-05-06 05:20] LABS: Calcium 9.1 MG/DL (8.5-10.1); Osmolality,Calculated 308.8 MOS/KG (273-304); Potassium 4.7 MMOL/L (3.5-5.1)
[2021-05-06 05:28] LABS: Lymphocytes 4 % (20-55); Platelet Estimate Normal; Segmented Neutrophils 93 % (50-85); Total Cells Counted 100
[2021-05-06] MEDS: MORPHINE 2 MG/1 ML SYRINGE IV PRN ×2 (06:21→17:03)
[2021-05-06] MEDS: DOCUSATE SODIUM 100 MG/10 ML UDCUP PO SCH (08:52)
[2021-05-06] MEDS: INSULIN GLARGINE 100 UNIT/ML SUBCUT SCH (08:58)
[2021-05-06] MEDS: DESITIN 4OZ/NYSTATIN 15 GRAM MIXTURE PASTE TOP SCH ×2 (09:11→21:14)
[2021-05-06] MEDS: ENALAPRIL 2.5 MG/2 ML VIAL IV PRN (16:13)
[2021-05-07] MEDS: MORPHINE 2 MG/1 ML SYRINGE IV PRN ×3 (00:24→22:30)
[2021-05-07] MEDS: INSULIN REGULAR 100 UNIT/ML SUBCUT SCH ×4 (00:30→18:01)
[2021-05-07] MEDS: methylPREDNISolone SOD SUC 40 MG/1 ML VIAL IV SCH ×4 (03:41→20:16)
[2021-05-07] MEDS: PANTOPRAZOLE 40 MG VIAL IV SCH (03:43)
[2021-05-07] MEDS: cefTRIAXone 1,000 MG in SODIUM CHLORIDE 0.9% 100 ML IV SCH (03:46)
[2021-05-07] MEDS: ENOXAPARIN 40 MG/0.4 ML SYRINGE SUBCUT SCH (03:46)
[2021-05-07] MEDS: MIDAZOLAM 100 MG in SODIUM CHLORIDE 0.9% 80 ML IV PRN ×2 (03:59→16:09)
[2021-05-07 04:41] LABS: Basophils % 0.2 % (0.0-0.8); Hematocrit 38.6 VOL% (42.0-52.0); Hemoglobin 11.7 GM/DL (14.0-18.0); Immature Granulocytes % 1.7 %; Immature Granulocytes Absolute 0.38 #; Lymphocytes # 0.7 10*3/uL (1.4-4.0); Lymphocytes % 3.1 % (21.2-54.2); Mean Corpuscular HGB Conc 30.3 GM/DL (32-36); Mean Corpuscular Volume 109.3 FL (87-102); Mean Platelet Volume 11.2 FL (9.6-12.0); Monocytes % 8.3 % (1.7-12.7); Neutrophils % 86.7 % (38.7-73.9); Platelet Count 214 T/CUMM (130-400); Red Blood Count 3.53 MC/CUMM (3.8-5.5); Red Cell Distribution Width 20.5 % (9.3-17.3); White Blood Count 21.8 T/CUMM (4-12)
[2021-05-07 04:54] LABS: ABG Base Excess 6.5 MMOL/L (-2.5-2.5); ABG HCO3 35.6 MMOL/L (20-26); ABG Oxygen Saturation 95.7 % (95-100); ABG PH 7.282 (7.35-7.45); ABG PO2 90.3 MM HG (80-95); ABG TCO2 37.9 MMOL/L (23-27)
[2021-05-07 04:56] LABS: ABG PCO2 77.1 MM HG (35-48)
[2021-05-07 05:15] LABS: Calcium 9.2 MG/DL (8.5-10.1); Osmolality,Calculated 306.1 MOS/KG (273-304); Potassium 4.3 MMOL/L (3.5-5.1)
[2021-05-07] MEDS: DOCUSATE SODIUM 100 MG/10 ML UDCUP PO SCH (08:17)
[2021-05-07] MEDS: INSULIN GLARGINE 100 UNIT/ML SUBCUT SCH (08:32)
[2021-05-07] MEDS: DESITIN 4OZ/NYSTATIN 15 GRAM MIXTURE PASTE TOP SCH ×2 (08:34→21:32)
[2021-05-08] MEDS: INSULIN REGULAR 100 UNIT/ML SUBCUT SCH ×4 (00:52→18:37)
[2021-05-08] MEDS: PANTOPRAZOLE 40 MG VIAL IV SCH (01:43)
[2021-05-08] MEDS: cefTRIAXone 1,000 MG in SODIUM CHLORIDE 0.9% 100 ML IV SCH (01:47)
[2021-05-08] MEDS: methylPREDNISolone SOD SUC 40 MG/1 ML VIAL IV SCH ×4 (02:33→20:13)
[2021-05-08] MEDS: ENOXAPARIN 40 MG/0.4 ML SYRINGE SUBCUT SCH (02:38)
[2021-05-08 04:00] LABS: ABG Base Excess 4.3 MMOL/L (-2.5-2.5); ABG HCO3 28.3 MMOL/L (20-26); ABG Oxygen Saturation 97.8 % (95-100); ABG PCO2 50.6 MM HG (35-48); ABG PH 7.386 (7.35-7.45); ABG PO2 93.6 MM HG (80-95); ABG TCO2 27.2 MMOL/L (23-27)
[2021-05-08] MEDS: MIDAZOLAM 100 MG in SODIUM CHLORIDE 0.9% 80 ML IV PRN (04:47)
[2021-05-08 05:13] LABS: Basophils % 0.1 % (0.0-0.8); Hematocrit 35.4 VOL% (42.0-52.0); Hemoglobin 10.7 GM/DL (14.0-18.0); Immature Granulocytes % 1.5 %; Immature Granulocytes Absolute 0.27 #; Lymphocytes # 0.7 10*3/uL (1.4-4.0); Lymphocytes % 3.9 % (21.2-54.2); Mean Corpuscular HGB Conc 30.2 GM/DL (32-36); Mean Corpuscular Volume 108.9 FL (87-102); Mean Platelet Volume 11.5 FL (9.6-12.0); Monocytes % 7.3 % (1.7-12.7); Neutrophils % 87.2 % (38.7-73.9); Platelet Count 185 T/CUMM (130-400); Red Blood Count 3.25 MC/CUMM (3.8-5.5); Red Cell Distribution Width 19.9 % (9.3-17.3); White Blood Count 17.8 T/CUMM (4-12)
[2021-05-08 05:33] LABS: Hypochromasia Slight; Lymphocytes 4 % (20-55); Segmented Neutrophils 92 % (50-85); Total Cells Counted 100
[2021-05-08 05:34] LABS: Anisocytosis 1+; Microcytosis 1+; Ovalocytes Slight; Polychromasia Slight
[2021-05-08 05:42] LABS: Calcium 9.3 MG/DL (8.5-10.1); Potassium 4.2 MMOL/L (3.5-5.1)
[2021-05-08] MEDS: INSULIN GLARGINE 100 UNIT/ML SUBCUT SCH (08:56)
[2021-05-08] MEDS: DOCUSATE SODIUM 100 MG/10 ML UDCUP PO SCH (08:57)
[2021-05-08] MEDS: DESITIN 4OZ/NYSTATIN 15 GRAM MIXTURE PASTE TOP SCH ×2 (08:58→20:41)
[2021-05-08] MEDS ORDERED: hydrALAZINE 20 MG/1 ML VIAL IV PRN (11:21)
[2021-05-08] MEDS ORDERED: INSULIN GLARGINE 100 UNIT/ML SUBCUT ONE (11:30)
[2021-05-08] MEDS: OLMESARTAN 20 MG TABLET PO SCH (16:00)
[2021-05-08] MEDS: MORPHINE 2 MG/1 ML SYRINGE IV PRN (18:55)
[2021-05-08 21:31] LABS: ABG Base Excess 2.8 MMOL/L (-2.5-2.5); ABG HCO3 26.7 MMOL/L (20-26); ABG Oxygen Saturation 91.4 % (95-100); ABG PCO2 50.8 MM HG (35-48); ABG PH 7.369 (7.35-7.45); ABG PO2 66.8 MM HG (80-95); ABG TCO2 25.3 MMOL/L (23-27)
[2021-05-08] MEDS ORDERED: ETOMIDATE 20 MG/10 ML VIAL IV ONE ×2 (22:00)
[2021-05-08] MEDS ORDERED: ROCURONIUM 100 MG/10 ML VIAL IV ONE ×2 (22:00)
[2021-05-08 22:11] LABS: Calcium 10.2 MG/DL (8.5-10.1); Osmolality,Calculated 308.6 MOS/KG (273-304); Potassium 3.4 MMOL/L (3.5-5.1)
[2021-05-08] MEDS ORDERED: METOPROLOL TARTRATE 5 MG/5 ML VIAL IV STA (22:16)
[2021-05-09] MEDS ORDERED: POTASSIUM CHLORIDE RIDER 20 MEQ/100 ML PREMIX IV PRN (00:18)
[2021-05-09] MEDS ORDERED: POTASSIUM CHLORIDE RIDER 10 MEQ/100 ML PREMIX IV PRN (00:18)
[2021-05-09] MEDS: INSULIN REGULAR 100 UNIT/ML SUBCUT SCH ×4 (00:58→18:28)
[2021-05-09 01:38] LABS: ABG Base Excess 0.4 MMOL/L (-2.5-2.5); ABG HCO3 30.4 MMOL/L (20-26); ABG Oxygen Saturation 99.1 % (95-100); ABG PH 7.217 (7.35-7.45); ABG PO2 237.7 MM HG (80-95); ABG TCO2 32.7 MMOL/L (23-27)
[2021-05-09 01:41] LABS: ABG PCO2 76.5 MM HG (35-48)
[2021-05-09] MEDS: MAGNESIUM SULF RIDER 2 GM/50 ML PREMIX IV PRN (01:52)
[2021-05-09] MEDS: MIDAZOLAM 100 MG in SODIUM CHLORIDE 0.9% 80 ML IV PRN ×2 (02:24→16:47)
[2021-05-09] MEDS: PANTOPRAZOLE 40 MG VIAL IV SCH (02:53)
[2021-05-09] MEDS: methylPREDNISolone SOD SUC 40 MG/1 ML VIAL IV SCH ×4 (02:57→20:39)
[2021-05-09] MEDS: ENOXAPARIN 40 MG/0.4 ML SYRINGE SUBCUT SCH (02:59)
[2021-05-09 04:04] LABS: ABG Base Excess 1.1 MMOL/L (-2.5-2.5); ABG HCO3 25.4 MMOL/L (20-26); ABG Oxygen Saturation 98.2 % (95-100); ABG PH 7.293 (7.35-7.45)
[2021-05-09 06:13] LABS: Bilirubin,Total 0.4 MG/DL (0.20-1.00); Osmolality,Calculated 314.6 MOS/KG (273-304); Potassium 3.6 MMOL/L (3.5-5.1); Total Protein 7.3 G/DL (6.4-8.2)
[2021-05-09 07:34] LABS: Basophils # 0.1 10*3/uL (0.0-0.2); Basophils % 0.2 % (0.0-0.8); Hematocrit 43.2 VOL% (42.0-52.0); Hemoglobin 13.3 GM/DL (14.0-18.0); Immature Granulocytes % 1.5 %; Immature Granulocytes Absolute 0.62 #; Lymphocytes # 0.8 10*3/uL (1.4-4.0); Lymphocytes % 1.8 % (21.2-54.2); Mean Corpuscular HGB Conc 30.8 GM/DL (32-36); Mean Corpuscular Volume 107.5 FL (87-102); Mean Platelet Volume 11.6 FL (9.6-12.0); Monocytes % 7.4 % (1.7-12.7); Neutrophils % 89.1 % (38.7-73.9); Platelet Count 273 T/CUMM (130-400); Red Blood Count 4.02 MC/CUMM (3.8-5.5); Red Cell Distribution Width 20.4 % (9.3-17.3)
[2021-05-09 07:39] LABS: White Blood Count 40.7 T/CUMM (4-12)
[2021-05-09 07:51] LABS: Lymphocytes 3 % (20-55); Platelet Estimate Adequate; Segmented Neutrophils 91 % (50-85); Total Cells Counted 100
[2021-05-09] MEDS: OLMESARTAN 20 MG TABLET PO SCH (10:38)
[2021-05-09] MEDS: ESCITALOPRAM 10 MG TABLET NG SCH (10:39)
[2021-05-09] MEDS: LEVOFLOXACIN INJ 750 MG/150 ML PREMIX IV SCH (10:39)
[2021-05-09] MEDS: DESITIN 4OZ/NYSTATIN 15 GRAM MIXTURE PASTE TOP SCH ×2 (10:39→21:33)
[2021-05-09] MEDS: INSULIN GLARGINE 100 UNIT/ML SUBCUT SCH (10:39)
[2021-05-09] MEDS: DOCUSATE SODIUM 100 MG/10 ML UDCUP PO SCH (11:43)
[2021-05-09] MEDS: PHENYLEPHRINE DRIP 40 MG/250 ML PREMIX IV PRN (12:01)
[2021-05-09] MEDS ORDERED: METOPROLOL TARTRATE 5 MG/5 ML VIAL IV ONE (16:08)
[2021-05-10] MEDS: INSULIN REGULAR 100 UNIT/ML SUBCUT SCH ×5 (00:33→23:20)
[2021-05-10] MEDS: PANTOPRAZOLE 40 MG VIAL IV SCH (02:40)
[2021-05-10] MEDS: methylPREDNISolone SOD SUC 40 MG/1 ML VIAL IV SCH ×4 (02:43→21:53)
[2021-05-10] MEDS: ENOXAPARIN 40 MG/0.4 ML SYRINGE SUBCUT SCH (02:46)
[2021-05-10 04:17] LABS: ABG Base Excess 2.2 MMOL/L (-2.5-2.5); ABG HCO3 28.3 MMOL/L (20-26); ABG Oxygen Saturation 96.7 % (95-100); ABG PCO2 50.9 MM HG (35-48); ABG PH 7.363 (7.35-7.45); ABG PO2 92.3 MM HG (80-95); ABG TCO2 29.9 MMOL/L (23-27)
[2021-05-10 04:20] LABS: Basophils % 0.1 % (0.0-0.8); Hemoglobin 11.6 GM/DL (14.0-18.0); Immature Granulocytes % 0.9 %; Immature Granulocytes Absolute 0.18 #; Lymphocytes # 0.5 10*3/uL (1.4-4.0); Lymphocytes % 2.5 % (21.2-54.2); Mean Corpuscular HGB Conc 31.4 GM/DL (32-36); Mean Corpuscular Volume 107.6 FL (87-102); Mean Platelet Volume 11.9 FL (9.6-12.0); Monocytes % 7.4 % (1.7-12.7); Neutrophils % 89.1 % (38.7-73.9); Platelet Count 202 T/CUMM (130-400); Red Blood Count 3.44 MC/CUMM (3.8-5.5); Red Cell Distribution Width 20.3 % (9.3-17.3); White Blood Count 19.4 T/CUMM (4-12)
[2021-05-10 04:50] LABS: Albumin 2.4 G/DL (3.4-5.0); Bilirubin,Total 0.5 MG/DL (0.20-1.00); Calcium 9.2 MG/DL (8.5-10.1); Potassium 4.1 MMOL/L (3.5-5.1); Total Protein 6.4 G/DL (6.4-8.2)
[2021-05-10 04:54] LABS: Lymphocytes 5 % (20-55); Platelet Estimate Adequate; Segmented Neutrophils 92 % (50-85); Total Cells Counted 100
[2021-05-10 04:55] LABS: Hypochromasia 1+; Microcytosis 1+
[2021-05-10] MEDS: MIDAZOLAM 100 MG in SODIUM CHLORIDE 0.9% 80 ML IV PRN ×2 (05:49→20:31)
[2021-05-10] MEDS: MORPHINE 2 MG/1 ML SYRINGE IV PRN (06:34)
[2021-05-10] MEDS: DOCUSATE SODIUM 100 MG/10 ML UDCUP PO SCH (08:03)
[2021-05-10] MEDS: OLMESARTAN 20 MG TABLET PO SCH ×2 (08:03→11:00)
[2021-05-10] MEDS: ESCITALOPRAM 10 MG TABLET NG SCH (08:53)
[2021-05-10] MEDS: LEVOFLOXACIN INJ 750 MG/150 ML PREMIX IV SCH (08:53)
[2021-05-10] MEDS: INSULIN GLARGINE 100 UNIT/ML SUBCUT SCH (08:54)
[2021-05-10] MEDS: DESITIN 4OZ/NYSTATIN 15 GRAM MIXTURE PASTE TOP SCH ×2 (09:54→21:54)
[2021-05-10 17:57] LABS: Calcium 9.3 MG/DL (8.5-10.1); Osmolality,Calculated 327.4 MOS/KG (273-304); Potassium 4.1 MMOL/L (3.5-5.1)
[2021-05-10 18:23] LABS: ABG Base Excess 2.8 MMOL/L (-2.5-2.5); ABG HCO3 26.9 MMOL/L (20-26); ABG Oxygen Saturation 98.7 % (95-100); ABG PCO2 52.3 MM HG (35-48); ABG PH 7.357 (7.35-7.45); ABG TCO2 26.2 MMOL/L (23-27)
[2021-05-10] MEDS: PHENYLEPHRINE DRIP 40 MG/250 ML PREMIX IV PRN (19:44)
[2021-05-11] MEDS: PHENYLEPHRINE DRIP 40 MG/250 ML PREMIX IV PRN ×2 (02:07→07:11)
[2021-05-11] MEDS: methylPREDNISolone SOD SUC 40 MG/1 ML VIAL IV SCH ×4 (02:43→19:58)
[2021-05-11] MEDS: PANTOPRAZOLE 40 MG VIAL IV SCH (02:43)
[2021-05-11] MEDS: ENOXAPARIN 40 MG/0.4 ML SYRINGE SUBCUT SCH (02:51)
[2021-05-11 05:07] LABS: Basophils # 0.1 10*3/uL (0.0-0.2); Basophils % 0.2 % (0.0-0.8); Hematocrit 38.5 VOL% (42.0-52.0); Hemoglobin 12.2 GM/DL (14.0-18.0); Immature Granulocytes % 1.3 %; Immature Granulocytes Absolute 0.46 #; Lymphocytes # 0.5 10*3/uL (1.4-4.0); Lymphocytes % 1.5 % (21.2-54.2); Mean Corpuscular HGB Conc 31.7 GM/DL (32-36); Mean Corpuscular Volume 108.5 FL (87-102); Monocytes % 5.2 % (1.7-12.7); Neutrophils % 91.8 % (38.7-73.9); Platelet Count 272 T/CUMM (130-400); Red Blood Count 3.55 MC/CUMM (3.8-5.5); Red Cell Distribution Width 20.7 % (9.3-17.3); White Blood Count 35.3 T/CUMM (4-12)
[2021-05-11 05:08] LABS: ABG Base Excess 0.5 MMOL/L (-2.5-2.5); ABG HCO3 24.9 MMOL/L (20-26); ABG Oxygen Saturation 98.7 % (95-100); ABG PH 7.297 (7.35-7.45); ABG TCO2 25.4 MMOL/L (23-27)
[2021-05-11 05:28] LABS: Alanine Aminotransferase 67 U/L (16-61); Albumin 2.6 G/DL (3.4-5.0); Alkaline Phosphatase 93 U/L (45-117); Aspartate Amino Transferase 31 U/L (0-37); Bilirubin,Total < 0.39 MG/DL (0.20-1.00); Blood Urea Nitrogen 97 MG/DL (7-18); Calcium 9.2 MG/DL (8.5-10.1); Carbon Dioxide 29 MMOL/L (21-32); Estimated Glom Filtration Rate 101 ML/MIN; Glucose 214 MG/DL (74-106); Sodium 150 MMOL/L (136-145); Total Protein 6.5 G/DL (6.4-8.2)
[2021-05-11 05:29] LABS: Hypochromasia 1+; Microcytosis 1+; Platelet Estimate Adequate; Segmented Neutrophils 95 % (50-85); Total Cells Counted 100
[2021-05-11] MEDS: INSULIN REGULAR 100 UNIT/ML SUBCUT SCH ×3 (06:06→19:54)
[2021-05-11] MEDS: DOCUSATE SODIUM 100 MG/10 ML UDCUP PO SCH (08:28)
[2021-05-11] MEDS: ESCITALOPRAM 10 MG TABLET NG SCH (08:32)
[2021-05-11] MEDS: LEVOFLOXACIN INJ 750 MG/150 ML PREMIX IV SCH (08:32)
[2021-05-11] MEDS: INSULIN GLARGINE 100 UNIT/ML SUBCUT SCH (08:38)
[2021-05-11] MEDS: DESITIN 4OZ/NYSTATIN 15 GRAM MIXTURE PASTE TOP SCH ×2 (08:39→21:33)
[2021-05-11] MEDS: MIDAZOLAM 100 MG in SODIUM CHLORIDE 0.9% 80 ML IV PRN ×2 (09:01→22:49)
[2021-05-11] MEDS: VALPROIC ACID INJ 500 MG in SODIUM CHLORIDE 0.9% 100 ML IV SCH ×2 (14:37→19:55)
[2021-05-11] MEDS ORDERED: METOPROLOL TARTRATE 5 MG/5 ML VIAL IV ONE ×2 (18:15→18:19)
[2021-05-11] MEDS: MORPHINE 2 MG/1 ML SYRINGE IV PRN (21:33)
[2021-05-12] MEDS: INSULIN REGULAR 100 UNIT/ML SUBCUT SCH ×4 (00:27→18:14)
[2021-05-12] MEDS: ACETAMINOPHEN 325 MG TABLET PO PRN (01:37)
[2021-05-12] MEDS: PANTOPRAZOLE 40 MG VIAL IV SCH (02:37)
[2021-05-12] MEDS: methylPREDNISolone SOD SUC 40 MG/1 ML VIAL IV SCH ×4 (02:40→20:21)
[2021-05-12] MEDS: ENOXAPARIN 40 MG/0.4 ML SYRINGE SUBCUT SCH (02:44)
[2021-05-12] MEDS: PHENYLEPHRINE DRIP 40 MG/250 ML PREMIX IV PRN ×2 (03:29→12:31)
[2021-05-12 03:52] LABS: Basophils % 0.1 % (0.0-0.8); Hematocrit 37.4 VOL% (42.0-52.0); Hemoglobin 11.2 GM/DL (14.0-18.0); Immature Granulocytes % 1.2 %; Immature Granulocytes Absolute 0.35 #; Lymphocytes # 0.6 10*3/uL (1.4-4.0); Lymphocytes % 2.2 % (21.2-54.2); Mean Corpuscular HGB Conc 29.9 GM/DL (32-36); Mean Corpuscular Volume 112.7 FL (87-102); Mean Platelet Volume 11.9 FL (9.6-12.0); Monocytes % 7.2 % (1.7-12.7); Neutrophils % 89.3 % (38.7-73.9); Platelet Count 201 T/CUMM (130-400); Red Blood Count 3.32 MC/CUMM (3.8-5.5); Red Cell Distribution Width 20.7 % (9.3-17.3); White Blood Count 29.5 T/CUMM (4-12)
[2021-05-12 04:09] LABS: Alanine Aminotransferase 83 U/L (16-61); Albumin 2.4 G/DL (3.4-5.0); Alkaline Phosphatase 88 U/L (45-117); Aspartate Amino Transferase 38 U/L (0-37); Bilirubin,Total < 0.39 MG/DL (0.20-1.00); Blood Urea Nitrogen 90 MG/DL (7-18); Calcium 9.2 MG/DL (8.5-10.1); Carbon Dioxide 34 MMOL/L (21-32); Estimated Glom Filtration Rate 76 ML/MIN; Glucose 251 MG/DL (74-106); Potassium 4.4 MMOL/L (3.5-5.1); Sodium 150 MMOL/L (136-145)
[2021-05-12 04:15] LABS: Anisocytosis 2+; Band Neutrophils 1 % (0-10); Basophilic Stippling Slight; Lymphocytes 2 % (20-55); Ovalocytes Few; Platelet Estimate Normal; Segmented Neutrophils 88 % (50-85); Total Cells Counted 100
[2021-05-12 04:16] LABS: Macrocytosis 1+
[2021-05-12] MEDS: VALPROIC ACID INJ 500 MG in SODIUM CHLORIDE 0.9% 100 ML IV SCH ×3 (04:56→20:21)
[2021-05-12 04:58] LABS: ABG Base Excess 2.9 MMOL/L (-2.5-2.5); ABG Oxygen Saturation 97.8 % (95-100); ABG PCO2 65.9 MM HG (35-48); ABG PH 7.288 (7.35-7.45); ABG TCO2 28.4 MMOL/L (23-27)
[2021-05-12] MEDS: MORPHINE 2 MG/1 ML SYRINGE IV PRN ×2 (06:01→08:33)
[2021-05-12] MEDS: ESCITALOPRAM 10 MG TABLET NG SCH (09:32)
[2021-05-12] MEDS: INSULIN GLARGINE 100 UNIT/ML SUBCUT SCH (09:33)
[2021-05-12] MEDS: LEVOFLOXACIN INJ 750 MG/150 ML PREMIX IV SCH (09:33)
[2021-05-12] MEDS: DESITIN 4OZ/NYSTATIN 15 GRAM MIXTURE PASTE TOP SCH ×2 (09:34→20:48)
[2021-05-12] MEDS: DOCUSATE SODIUM 100 MG/10 ML UDCUP PO SCH (09:34)
[2021-05-12] MEDS: METOCLOPRAMIDE 10 MG/2 ML VIAL IV SCH ×3 (09:58→20:30)
[2021-05-12] MEDS ORDERED: METOPROLOL TARTRATE 5 MG/5 ML VIAL IV ONE ×2 (10:23→10:40)
[2021-05-12] MEDS: MIDAZOLAM 100 MG in SODIUM CHLORIDE 0.9% 80 ML IV PRN ×2 (11:45→22:17)
[2021-05-12] MEDS ORDERED: LACTATED RINGERS 500 ML IV ONE (12:39)
[2021-05-12] MEDS: METOPROLOL TARTRATE 5 MG/5 ML VIAL IV SCH ×2 (18:05→21:13)
[2021-05-13] MEDS: INSULIN REGULAR 100 UNIT/ML SUBCUT SCH ×4 (00:25→18:22)
[2021-05-13] MEDS: MORPHINE 2 MG/1 ML SYRINGE IV PRN (01:25)
[2021-05-13] MEDS: ACETAMINOPHEN 325 MG TABLET PO PRN ×2 (01:28→22:59)
[2021-05-13] MEDS: PANTOPRAZOLE 40 MG VIAL IV SCH (02:44)
[2021-05-13] MEDS: methylPREDNISolone SOD SUC 40 MG/1 ML VIAL IV SCH ×4 (02:46→20:39)
[2021-05-13] MEDS: METOCLOPRAMIDE 10 MG/2 ML VIAL IV SCH ×4 (02:48→20:42)
[2021-05-13] MEDS: ENOXAPARIN 40 MG/0.4 ML SYRINGE SUBCUT SCH (02:52)
[2021-05-13] MEDS: VALPROIC ACID INJ 500 MG in SODIUM CHLORIDE 0.9% 100 ML IV SCH ×3 (03:39→20:38)
[2021-05-13 05:12] LABS: Alanine Aminotransferase 75 U/L (16-61); Alkaline Phosphatase 78 U/L (45-117); Aspartate Amino Transferase 31 U/L (0-37); Bilirubin,Total < 0.39 MG/DL (0.20-1.00); Blood Urea Nitrogen 100 MG/DL (7-18); Calcium 8.9 MG/DL (8.5-10.1); Carbon Dioxide 32 MMOL/L (21-32); Estimated Glom Filtration Rate 76 ML/MIN; Glucose 234 MG/DL (74-106); Osmolality,Calculated 337.9 MOS/KG (273-304); Potassium 4.9 MMOL/L (3.5-5.1); Sodium 151 MMOL/L (136-145); Total Protein 5.3 G/DL (6.4-8.2)
[2021-05-13] MEDS: METOPROLOL TARTRATE 5 MG/5 ML VIAL IV SCH ×8 (05:59→23:06)
[2021-05-13 06:25] LABS: ABG Base Excess 3.4 MMOL/L (-2.5-2.5); ABG HCO3 27.5 MMOL/L (20-26); ABG Oxygen Saturation 97.6 % (95-100); ABG PCO2 66.5 MM HG (35-48); ABG PH 7.288 (7.35-7.45); ABG PO2 99.2 MM HG (80-95); ABG TCO2 29.2 MMOL/L (23-27)
[2021-05-13] MEDS: PHENYLEPHRINE DRIP 40 MG/250 ML PREMIX IV PRN (08:00)
[2021-05-13] MEDS: ESCITALOPRAM 10 MG TABLET NG SCH (08:37)
[2021-05-13] MEDS: INSULIN GLARGINE 100 UNIT/ML SUBCUT SCH (08:40)
[2021-05-13] MEDS: DOCUSATE SODIUM 100 MG/10 ML UDCUP PO SCH (08:42)
[2021-05-13] MEDS: DESITIN 4OZ/NYSTATIN 15 GRAM MIXTURE PASTE TOP SCH ×2 (08:42→20:59)
[2021-05-13] MEDS: LEVOFLOXACIN INJ 750 MG/150 ML PREMIX IV SCH (09:00)
[2021-05-13] MEDS ORDERED: DEXTROSE 5% 1,000 ML IV SCH (10:00)
[2021-05-13] MEDS: MIDAZOLAM 100 MG in SODIUM CHLORIDE 0.9% 80 ML IV PRN (11:57)
[2021-05-13 15:31] LABS: Osmolality,Calculated 329.9 MOS/KG (273-304)
[2021-05-14] MEDS: INSULIN REGULAR 100 UNIT/ML SUBCUT SCH ×4 (00:28→18:14)
[2021-05-14] MEDS: PANTOPRAZOLE 40 MG VIAL IV SCH (03:08)
[2021-05-14] MEDS: methylPREDNISolone SOD SUC 40 MG/1 ML VIAL IV SCH ×4 (03:10→20:16)
[2021-05-14] MEDS: ENOXAPARIN 40 MG/0.4 ML SYRINGE SUBCUT SCH (03:13)
[2021-05-14] MEDS: METOCLOPRAMIDE 10 MG/2 ML VIAL IV SCH ×4 (03:13→23:08)
[2021-05-14] MEDS: VALPROIC ACID INJ 500 MG in SODIUM CHLORIDE 0.9% 100 ML IV SCH ×3 (03:15→20:14)
[2021-05-14 03:53] LABS: ABG HCO3 29.8 MMOL/L (20-26); ABG Oxygen Saturation 96.2 % (95-100); ABG PCO2 67.2 MM HG (35-48); ABG PH 7.318 (7.35-7.45); ABG PO2 85.9 MM HG (80-95); ABG TCO2 31.1 MMOL/L (23-27)
[2021-05-14 04:17] LABS: Alanine Aminotransferase 87 U/L (16-61); Albumin 2.1 G/DL (3.4-5.0); Alkaline Phosphatase 75 U/L (45-117); Aspartate Amino Transferase 39 U/L (0-37); Bilirubin,Total < 0.39 MG/DL (0.20-1.00); Blood Urea Nitrogen 87 MG/DL (7-18); Calcium 8.8 MG/DL (8.5-10.1); Carbon Dioxide 35 MMOL/L (21-32); Estimated Glom Filtration Rate 97 ML/MIN; Glucose 235 MG/DL (74-106); Osmolality,Calculated 335.7 MOS/KG (273-304); Potassium 5.6 MMOL/L (3.5-5.1); Sodium 152 MMOL/L (136-145); Total Protein 5.3 G/DL (6.4-8.2)
[2021-05-14 04:28] LABS: Basophils # 0.1 10*3/uL (0.0-0.2); Basophils % 0.2 % (0.0-0.8); Hematocrit 38.4 VOL% (42.0-52.0); Hemoglobin 11.2 GM/DL (14.0-18.0); Immature Granulocytes % 1.5 %; Immature Granulocytes Absolute 0.52 #; Lymphocytes # 1.1 10*3/uL (1.4-4.0); Lymphocytes % 3.1 % (21.2-54.2); Mean Corpuscular HGB Conc 29.2 GM/DL (32-36); Mean Corpuscular Volume 112.6 FL (87-102); Mean Platelet Volume 12.7 FL (9.6-12.0); Monocytes % 7.6 % (1.7-12.7); Neutrophils % 87.6 % (38.7-73.9); Platelet Count 164 T/CUMM (130-400); Red Blood Count 3.41 MC/CUMM (3.8-5.5); Red Cell Distribution Width 20.3 % (9.3-17.3); White Blood Count 35.3 T/CUMM (4-12)
[2021-05-14 04:41] LABS: Hypochromasia 1+; Lymphocytes 5 % (20-55); Microcytosis 1+; Platelet Estimate Adequate; Segmented Neutrophils 92 % (50-85); Total Cells Counted 100
[2021-05-14] MEDS ORDERED: SODIUM POLYSTYRENE SULFATE 15 GM/60 ML BOTTLE PO ONE ×2 (04:45→16:25)
[2021-05-14] MEDS: ACETAMINOPHEN 325 MG TABLET PO PRN ×3 (05:06→21:57)
[2021-05-14] MEDS: MIDAZOLAM 100 MG in SODIUM CHLORIDE 0.9% 80 ML IV PRN ×2 (05:34→18:16)
[2021-05-14] MEDS: METOPROLOL TARTRATE 5 MG/5 ML VIAL IV SCH ×4 (05:53→23:10)
[2021-05-14] MEDS: PHENYLEPHRINE DRIP 40 MG/250 ML PREMIX IV PRN ×3 (06:06→16:35)
[2021-05-14 07:29] LABS: Bilirubin,Urine Negative (Negative); Blood, Urine Negative (Negative); Glucose,Urine (UA) Negative (Negative); Ketones,Urine Negative (Negative); Mucus,Urine Occasional /LPF (Occasional); Nitrite,Urine Negative (Negative); Protein,Urine Negative; RBC,Urine 2 /HPF (0-4); Urine Appearance CLEAR (Clear); Urine Color Yellow (Yellow); Urine Specific Gravity 1.023 (1.001-1.035); Urine Urobilinogen < 2.0 EU/DL (0.2-1.0)
[2021-05-14 07:36] LABS: Basophils # 0.1 10*3/uL (0.0-0.2); Basophils % 0.2 % (0.0-0.8); Hematocrit 37.4 VOL% (42.0-52.0); Hemoglobin 11.2 GM/DL (14.0-18.0); Immature Granulocytes % 1.7 %; Immature Granulocytes Absolute 0.67 #; Lymphocytes # 0.6 10*3/uL (1.4-4.0); Lymphocytes % 1.6 % (21.2-54.2); Mean Corpuscular HGB Conc 29.9 GM/DL (32-36); Mean Corpuscular Volume 112.3 FL (87-102); Mean Platelet Volume 12.1 FL (9.6-12.0); Monocytes % 5.4 % (1.7-12.7); NRBC # 0.02 10*3/uL; Neutrophils % 91.1 % (38.7-73.9); Platelet Count 185 T/CUMM (130-400); Red Blood Count 3.33 MC/CUMM (3.8-5.5); Red Cell Distribution Width 20.2 % (9.3-17.3)
[2021-05-14 07:37] LABS: White Blood Count 40.3 T/CUMM (4-12)
[2021-05-14 07:49] LABS: Hypochromasia Slight; Lymphocytes 3 % (20-55); Microcytosis Slight; Platelet Estimate Adequate; Segmented Neutrophils 91 % (50-85); Total Cells Counted 100
[2021-05-14 08:13] LABS: Osmolality,Calculated 332.9 MOS/KG (273-304); Potassium 5.5 MMOL/L (3.5-5.1)
[2021-05-14] MEDS: LEVOFLOXACIN INJ 750 MG/150 ML PREMIX IV SCH (09:41)
[2021-05-14] MEDS: INSULIN GLARGINE 100 UNIT/ML SUBCUT SCH (09:41)
[2021-05-14] MEDS: ESCITALOPRAM 10 MG TABLET NG SCH (09:41)
[2021-05-14] MEDS: DESITIN 4OZ/NYSTATIN 15 GRAM MIXTURE PASTE TOP SCH ×2 (09:42→20:36)
[2021-05-14] MEDS: MEROPENEM 500 MG in SODIUM CHLORIDE 0.9% 100 ML IV SCH ×2 (14:12→20:18)
[2021-05-14] MEDS: FLUCONAZOLE INJ 200 MG/100 ML PREMIX IV SCH (15:30)
[2021-05-14 15:44] LABS: Calcium 8.8 MG/DL (8.5-10.1); Osmolality,Calculated 333.6 MOS/KG (273-304); Potassium 5.6 MMOL/L (3.5-5.1)
[2021-05-15] MEDS: PHENYLEPHRINE DRIP 40 MG/250 ML PREMIX IV PRN ×2 (00:41→09:52)
[2021-05-15] MEDS: INSULIN REGULAR 100 UNIT/ML SUBCUT SCH ×4 (00:45→18:11)
[2021-05-15] MEDS: MEROPENEM 500 MG in SODIUM CHLORIDE 0.9% 100 ML IV SCH ×4 (02:08→19:48)
[2021-05-15] MEDS: PANTOPRAZOLE 40 MG VIAL IV SCH (02:09)
[2021-05-15] MEDS: methylPREDNISolone SOD SUC 40 MG/1 ML VIAL IV SCH ×4 (02:11→19:48)
[2021-05-15] MEDS: ENOXAPARIN 40 MG/0.4 ML SYRINGE SUBCUT SCH (02:14)
[2021-05-15] MEDS: ACETAMINOPHEN 325 MG TABLET PO PRN ×2 (02:15→21:25)
[2021-05-15] MEDS: VALPROIC ACID INJ 500 MG in SODIUM CHLORIDE 0.9% 100 ML IV SCH ×3 (04:18→19:47)
[2021-05-15 04:20] LABS: ABG Base Excess 8.9 MMOL/L (-2.5-2.5); ABG HCO3 37.5 MMOL/L (20-26); ABG Oxygen Saturation 95.8 % (95-100); ABG PH 7.303 (7.35-7.45); ABG TCO2 39.9 MMOL/L (23-27)
[2021-05-15 04:21] LABS: ABG PCO2 77.5 MM HG (35-48)
[2021-05-15 04:53] LABS: Alanine Aminotransferase 106 U/L (16-61); Albumin 1.9 G/DL (3.4-5.0); Alkaline Phosphatase 81 U/L (45-117); Aspartate Amino Transferase 52 U/L (0-37); Bilirubin,Total < 0.39 MG/DL (0.20-1.00); Blood Urea Nitrogen 66 MG/DL (7-18); Calcium 8.2 MG/DL (8.5-10.1); Estimated Glom Filtration Rate 114 ML/MIN; Glucose 301 MG/DL (74-106); Total Protein 4.8 G/DL (6.4-8.2)
[2021-05-15 05:01] LABS: Basophils # 0.1 10*3/uL (0.0-0.2); Basophils % 0.2 % (0.0-0.8); Hematocrit 36.7 VOL% (42.0-52.0); Hemoglobin 10.8 GM/DL (14.0-18.0); Immature Granulocytes % 1.6 %; Immature Granulocytes Absolute 0.43 #; Lymphocytes # 0.4 10*3/uL (1.4-4.0); Lymphocytes % 1.6 % (21.2-54.2); Mean Corpuscular HGB Conc 29.4 GM/DL (32-36); Mean Platelet Volume 12.9 FL (9.6-12.0); Monocytes % 4.2 % (1.7-12.7); Neutrophils % 92.4 % (38.7-73.9); Platelet Count 122 T/CUMM (130-400); Red Blood Count 3.22 MC/CUMM (3.8-5.5); White Blood Count 26.8 T/CUMM (4-12)
[2021-05-15 05:10] LABS: Osmolality,Calculated 328.9 MOS/KG (273-304); Potassium 4.8 MMOL/L (3.5-5.1); Sodium 151 MMOL/L (136-145)
[2021-05-15 05:12] LABS: Hypochromasia Slight; Lymphocytes 1 % (20-55); Microcytosis Slight; Platelet Estimate Normal; Segmented Neutrophils 96 % (50-85); Total Cells Counted 100
[2021-05-15 05:13] LABS: Carbon Dioxide 33 MMOL/L (21-32)
[2021-05-15] MEDS: METOPROLOL TARTRATE 5 MG/5 ML VIAL IV SCH ×3 (07:14→19:15)
[2021-05-15] MEDS: METOCLOPRAMIDE 10 MG/2 ML VIAL IV SCH ×2 (08:07→15:10)
[2021-05-15] MEDS: INSULIN GLARGINE 100 UNIT/ML SUBCUT SCH (08:12)
[2021-05-15] MEDS: ESCITALOPRAM 10 MG TABLET NG SCH (08:14)
[2021-05-15] MEDS: DESITIN 4OZ/NYSTATIN 15 GRAM MIXTURE PASTE TOP SCH ×2 (08:14→21:22)
[2021-05-15] MEDS: MIDAZOLAM 100 MG in SODIUM CHLORIDE 0.9% 80 ML IV PRN ×2 (08:44→20:55)
[2021-05-15] MEDS ORDERED: METOPROLOL TARTRATE 5 MG/5 ML VIAL IV ONE (09:31)
[2021-05-15] MEDS: FLUCONAZOLE INJ 200 MG/100 ML PREMIX IV SCH (14:28)
[2021-05-16] MEDS: METOPROLOL TARTRATE 5 MG/5 ML VIAL IV SCH ×5 (00:49→23:12)
[2021-05-16] MEDS: METOCLOPRAMIDE 10 MG/2 ML VIAL IV SCH ×4 (01:03→23:19)
[2021-05-16] MEDS: INSULIN REGULAR 100 UNIT/ML SUBCUT SCH ×4 (01:03→18:34)
[2021-05-16] MEDS: ENOXAPARIN 40 MG/0.4 ML SYRINGE SUBCUT SCH (02:11)
[2021-05-16] MEDS: PANTOPRAZOLE 40 MG VIAL IV SCH (02:11)
[2021-05-16] MEDS: MEROPENEM 500 MG in SODIUM CHLORIDE 0.9% 100 ML IV SCH ×4 (02:11→19:55)
[2021-05-16] MEDS: methylPREDNISolone SOD SUC 40 MG/1 ML VIAL IV SCH ×4 (02:11→21:12)
[2021-05-16 03:50] LABS: ABG Base Excess 9.1 MMOL/L (-2.5-2.5); ABG HCO3 32.8 MMOL/L (20-26); ABG Oxygen Saturation 97.7 % (95-100); ABG PH 7.346 (7.35-7.45); ABG TCO2 33.2 MMOL/L (23-27)
[2021-05-16] MEDS: PHENYLEPHRINE DRIP 40 MG/250 ML PREMIX IV PRN ×2 (03:54→13:52)
[2021-05-16 03:56] LABS: ABG PCO2 70.5 MM HG (35-48)
[2021-05-16 04:04] LABS: Basophils % 0.1 % (0.0-0.8); Hematocrit 34.7 VOL% (42.0-52.0); Hemoglobin 10.3 GM/DL (14.0-18.0); Lymphocytes # 0.5 10*3/uL (1.4-4.0); Lymphocytes % 2.6 % (21.2-54.2); Mean Corpuscular HGB Conc 29.7 GM/DL (32-36); Mean Corpuscular Volume 111.6 FL (87-102); Mean Platelet Volume 13.1 FL (9.6-12.0); NRBC # 0.02 10*3/uL; Neutrophils % 92.3 % (38.7-73.9); Platelet Count 100 T/CUMM (130-400); Red Blood Count 3.11 MC/CUMM (3.8-5.5); Red Cell Distribution Width 19.8 % (9.3-17.3); White Blood Count 20.3 T/CUMM (4-12)
[2021-05-16 04:08] LABS: Bilirubin,Total 0.6 MG/DL (0.20-1.00); Calcium 8.1 MG/DL (8.5-10.1); Potassium 5.4 MMOL/L (3.5-5.1); Total Protein 4.8 G/DL (6.4-8.2)
[2021-05-16] MEDS: VALPROIC ACID INJ 500 MG in SODIUM CHLORIDE 0.9% 100 ML IV SCH ×3 (04:08→20:50)
[2021-05-16 04:12] LABS: Hypochromasia 1+; Lymphocytes 4 % (20-55); Microcytosis 1+; Platelet Estimate Decreased; Segmented Neutrophils 92 % (50-85); Total Cells Counted 100
[2021-05-16] MEDS ORDERED: SODIUM POLYSTYRENE SULFATE 15 GM/60 ML BOTTLE PO ONE (04:16)
[2021-05-16] MEDS ORDERED: DEXTROSE 5% 250 ML IV SCH (04:30)
[2021-05-16] MEDS: INSULIN GLARGINE 100 UNIT/ML SUBCUT SCH (08:15)
[2021-05-16] MEDS: ESCITALOPRAM 10 MG TABLET NG SCH (08:16)
[2021-05-16] MEDS: DESITIN 4OZ/NYSTATIN 15 GRAM MIXTURE PASTE TOP SCH ×2 (08:23→21:14)
[2021-05-16] MEDS ORDERED: INSULIN GLARGINE 100 UNIT/ML SUBCUT ONE (08:53)
[2021-05-16] MEDS ORDERED: INSULIN GLARGINE 100 UNIT/ML SUBCUT SCH (09:00)
[2021-05-16] MEDS: MIDAZOLAM 100 MG in SODIUM CHLORIDE 0.9% 80 ML IV PRN (09:15)
[2021-05-16] MEDS: FLUCONAZOLE INJ 200 MG/100 ML PREMIX IV SCH (15:09)
[2021-05-16] MEDS: MORPHINE 2 MG/1 ML SYRINGE IV PRN (23:18)
[2021-05-17] MEDS: INSULIN REGULAR 100 UNIT/ML SUBCUT SCH ×5 (00:31→23:16)
[2021-05-17] MEDS: MIDAZOLAM 100 MG in SODIUM CHLORIDE 0.9% 80 ML IV PRN ×3 (01:07→23:45)
[2021-05-17] MEDS: MEROPENEM 500 MG in SODIUM CHLORIDE 0.9% 100 ML IV SCH ×4 (02:48→20:18)
[2021-05-17] MEDS: PANTOPRAZOLE 40 MG VIAL IV SCH (02:48)
[2021-05-17] MEDS: methylPREDNISolone SOD SUC 40 MG/1 ML VIAL IV SCH ×4 (02:49→20:18)
[2021-05-17] MEDS: ENOXAPARIN 40 MG/0.4 ML SYRINGE SUBCUT SCH (02:49)
[2021-05-17 03:08] LABS: Basophils % 0.1 % (0.0-0.8); Hematocrit 31.7 VOL% (42.0-52.0); Hemoglobin 9.4 GM/DL (14.0-18.0); Immature Granulocytes % 1.7 %; Immature Granulocytes Absolute 0.37 #; Lymphocytes # 0.5 10*3/uL (1.4-4.0); Lymphocytes % 2.4 % (21.2-54.2); Mean Corpuscular HGB Conc 29.7 GM/DL (32-36); Mean Corpuscular Volume 113.2 FL (87-102); Mean Platelet Volume 13.4 FL (9.6-12.0); Monocytes % 2.9 % (1.7-12.7); Neutrophils % 92.9 % (38.7-73.9); Platelet Count 89 T/CUMM (130-400); Red Cell Distribution Width 19.5 % (9.3-17.3); White Blood Count 22.1 T/CUMM (4-12)
[2021-05-17 03:24] LABS: Alanine Aminotransferase 84 U/L (16-61); Albumin 1.8 G/DL (3.4-5.0); Alkaline Phosphatase 86 U/L (45-117); Aspartate Amino Transferase 44 U/L (0-37); Bilirubin,Total < 0.39 MG/DL (0.20-1.00); Blood Urea Nitrogen 57 MG/DL (7-18); Calcium 8.1 MG/DL (8.5-10.1); Carbon Dioxide 40 MMOL/L (21-32); Estimated Glom Filtration Rate 113 ML/MIN; Glucose 225 MG/DL (74-106); Osmolality,Calculated 323.7 MOS/KG (273-304); Potassium 4.7 MMOL/L (3.5-5.1); Sodium 152 MMOL/L (136-145); Total Protein 4.4 G/DL (6.4-8.2)
[2021-05-17 04:04] LABS: Hypochromasia 1+; Lymphocytes 2 % (20-55); Microcytosis 1+; Platelet Estimate Decreased; Segmented Neutrophils 97 % (50-85); Total Cells Counted 100
[2021-05-17] MEDS: VALPROIC ACID INJ 500 MG in SODIUM CHLORIDE 0.9% 100 ML IV SCH ×3 (04:45→20:15)
[2021-05-17 04:56] LABS: ABG Base Excess 10.9 MMOL/L (-2.5-2.5); ABG HCO3 34.6 MMOL/L (20-26); ABG Oxygen Saturation 93.9 % (95-100); ABG PCO2 63.7 MM HG (35-48); ABG PH 7.386 (7.35-7.45); ABG TCO2 34.9 MMOL/L (23-27)
[2021-05-17] MEDS: METOPROLOL TARTRATE 5 MG/5 ML VIAL IV SCH ×4 (05:44→23:58)
[2021-05-17] MEDS: PHENYLEPHRINE DRIP 40 MG/250 ML PREMIX IV PRN ×3 (06:26→21:02)
[2021-05-17] MEDS: ESCITALOPRAM 10 MG TABLET NG SCH (10:47)
[2021-05-17] MEDS: INSULIN GLARGINE 100 UNIT/ML SUBCUT SCH (10:47)
[2021-05-17] MEDS: METOCLOPRAMIDE 10 MG/2 ML VIAL IV SCH ×3 (10:47→23:56)
[2021-05-17] MEDS: DESITIN 4OZ/NYSTATIN 15 GRAM MIXTURE PASTE TOP SCH ×2 (10:48→20:21)
[2021-05-17] MEDS: FLUCONAZOLE INJ 200 MG/100 ML PREMIX IV SCH (17:19)
[2021-05-17] MEDS: MORPHINE 2 MG/1 ML SYRINGE IV PRN (21:21)
[2021-05-18] MEDS: PANTOPRAZOLE 40 MG VIAL IV SCH (02:51)
[2021-05-18] MEDS: ENOXAPARIN 40 MG/0.4 ML SYRINGE SUBCUT SCH (02:51)
[2021-05-18] MEDS: MEROPENEM 500 MG in SODIUM CHLORIDE 0.9% 100 ML IV SCH ×4 (02:51→21:20)
[2021-05-18] MEDS: methylPREDNISolone SOD SUC 40 MG/1 ML VIAL IV SCH ×4 (02:58→21:18)
[2021-05-18 03:43] LABS: ABG Base Excess 11.9 MMOL/L (-2.5-2.5); ABG HCO3 40.2 MMOL/L (20-26); ABG Oxygen Saturation 98.2 % (95-100); ABG PH 7.322 (7.35-7.45); ABG PO2 144.2 MM HG (80-95); ABG TCO2 42.6 MMOL/L (23-27)
[2021-05-18 03:44] LABS: ABG PCO2 79.4 MM HG (35-48)
[2021-05-18 03:54] LABS: Basophils # 0.1 10*3/uL (0.0-0.2); Basophils % 0.1 % (0.0-0.8); Hematocrit 31.3 VOL% (42.0-52.0); Hemoglobin 9.3 GM/DL (14.0-18.0); Immature Granulocytes Absolute 1.15 #; Lymphocytes # 0.7 10*3/uL (1.4-4.0); Lymphocytes % 1.8 % (21.2-54.2); Mean Corpuscular HGB Conc 29.7 GM/DL (32-36); Mean Corpuscular Volume 114.7 FL (87-102); Mean Platelet Volume 13.8 FL (9.6-12.0); NRBC # 0.07 10*3/uL; Neutrophils % 92.1 % (38.7-73.9); Platelet Count 104 T/CUMM (130-400); Red Blood Count 2.73 MC/CUMM (3.8-5.5); Red Cell Distribution Width 19.5 % (9.3-17.3)
[2021-05-18 04:18] LABS: Albumin 1.8 G/DL (3.4-5.0); Bilirubin,Total 0.7 MG/DL (0.20-1.00); Calcium 7.8 MG/DL (8.5-10.1); Osmolality,Calculated 317.7 MOS/KG (273-304); Potassium 4.6 MMOL/L (3.5-5.1); Total Protein 4.3 G/DL (6.4-8.2)
[2021-05-18 04:33] LABS: Band Neutrophils 1 % (0-10); Lymphocytes 7 % (20-55); Platelet Estimate Normal; Segmented Neutrophils 90 % (50-85)
[2021-05-18 04:34] LABS: Hypochromasia Slight; Total Cells Counted 100
[2021-05-18] MEDS: VALPROIC ACID INJ 500 MG in SODIUM CHLORIDE 0.9% 100 ML IV SCH ×3 (05:03→21:20)
[2021-05-18] MEDS: PHENYLEPHRINE DRIP 40 MG/250 ML PREMIX IV PRN ×3 (05:36→18:59)
[2021-05-18] MEDS: INSULIN REGULAR 100 UNIT/ML SUBCUT SCH ×4 (05:41→23:28)
[2021-05-18] MEDS: METOPROLOL TARTRATE 5 MG/5 ML VIAL IV SCH ×5 (05:41→23:28)
[2021-05-18] MEDS: ESCITALOPRAM 10 MG TABLET NG SCH (08:05)
[2021-05-18] MEDS: METOCLOPRAMIDE 10 MG/2 ML VIAL IV SCH ×3 (08:06→23:38)
[2021-05-18] MEDS: INSULIN GLARGINE 100 UNIT/ML SUBCUT SCH (08:07)
[2021-05-18] MEDS: DESITIN 4OZ/NYSTATIN 15 GRAM MIXTURE PASTE TOP SCH ×2 (08:09→21:20)
[2021-05-18] MEDS: ACETAMINOPHEN 325 MG TABLET PO PRN (10:00)
[2021-05-18] MEDS: MIDAZOLAM 100 MG in SODIUM CHLORIDE 0.9% 80 ML IV PRN ×2 (12:24→22:51)
[2021-05-18] MEDS: FLUCONAZOLE INJ 200 MG/100 ML PREMIX IV SCH (14:22)
[2021-05-18] MEDS: MORPHINE 2 MG/1 ML SYRINGE IV PRN (22:41)
[2021-05-19] MEDS: MEROPENEM 500 MG in SODIUM CHLORIDE 0.9% 100 ML IV SCH ×4 (02:53→19:56)
[2021-05-19] MEDS: PANTOPRAZOLE 40 MG VIAL IV SCH (02:53)
[2021-05-19] MEDS: ENOXAPARIN 40 MG/0.4 ML SYRINGE SUBCUT SCH (02:54)
[2021-05-19] MEDS: methylPREDNISolone SOD SUC 40 MG/1 ML VIAL IV SCH ×4 (02:58→20:02)
[2021-05-19 04:03] LABS: ABG Base Excess 6.5 MMOL/L (-2.5-2.5); ABG HCO3 30.3 MMOL/L (20-26); ABG Oxygen Saturation 91.3 % (95-100); ABG PO2 69.9 MM HG (80-95); ABG TCO2 34.6 MMOL/L (23-27)
[2021-05-19 04:09] LABS: ABG PCO2 88.4 MM HG (35-48)
[2021-05-19 04:13] LABS: Basophils # 0.1 10*3/uL (0.0-0.2); Basophils % 0.2 % (0.0-0.8); Hematocrit 33.2 VOL% (42.0-52.0); Hemoglobin 10.1 GM/DL (14.0-18.0); Immature Granulocytes % 2.7 %; Immature Granulocytes Absolute 1.27 #; Lymphocytes # 0.9 10*3/uL (1.4-4.0); Lymphocytes % 1.8 % (21.2-54.2); Mean Corpuscular HGB Conc 30.4 GM/DL (32-36); Mean Corpuscular Volume 115.3 FL (87-102); Mean Platelet Volume 14.2 FL (9.6-12.0); Monocytes % 2.9 % (1.7-12.7); NRBC # 0.09 10*3/uL; Neutrophils % 92.4 % (38.7-73.9); Red Blood Count 2.88 MC/CUMM (3.8-5.5); Red Cell Distribution Width 18.9 % (9.3-17.3)
[2021-05-19 04:14] LABS: Platelet Count 93 T/CUMM (130-400)
[2021-05-19 04:15] LABS: White Blood Count 47.7 T/CUMM (4-12)
[2021-05-19 04:22] LABS: Calcium 7.9 MG/DL (8.5-10.1); Osmolality,Calculated 314.3 MOS/KG (273-304); Potassium 5.1 MMOL/L (3.5-5.1)
[2021-05-19 04:38] LABS: Band Neutrophils 2 % (0-10); Lymphocytes 7 % (20-55); Platelet Estimate Adequate; Segmented Neutrophils 90 % (50-85); Total Cells Counted 100
[2021-05-19 04:39] LABS: Stomatocytes Few
[2021-05-19] MEDS: VALPROIC ACID INJ 500 MG in SODIUM CHLORIDE 0.9% 100 ML IV SCH ×3 (04:54→19:55)
[2021-05-19] MEDS: METOPROLOL TARTRATE 5 MG/5 ML VIAL IV SCH ×4 (05:47→23:42)
[2021-05-19] MEDS: INSULIN REGULAR 100 UNIT/ML SUBCUT SCH ×4 (05:47→23:12)
[2021-05-19] MEDS: PHENYLEPHRINE DRIP 40 MG/250 ML PREMIX IV PRN ×2 (07:40→18:10)
[2021-05-19] MEDS: INSULIN GLARGINE 100 UNIT/ML SUBCUT SCH (08:20)
[2021-05-19] MEDS: METOCLOPRAMIDE 10 MG/2 ML VIAL IV SCH ×3 (08:20→23:47)
[2021-05-19] MEDS: ESCITALOPRAM 10 MG TABLET NG SCH (08:25)
[2021-05-19] MEDS: MIDAZOLAM 100 MG in SODIUM CHLORIDE 0.9% 80 ML IV PRN ×2 (11:00→22:46)
[2021-05-19] MEDS: DESITIN 4OZ/NYSTATIN 15 GRAM MIXTURE PASTE TOP SCH ×2 (11:10→20:48)
[2021-05-19] MEDS: FLUCONAZOLE INJ 200 MG/100 ML PREMIX IV SCH (14:45)
[2021-05-19] MEDS ORDERED: ROCURONIUM 100 MG/10 ML VIAL IV ONE (19:12)
[2021-05-20] MEDS: ENOXAPARIN 40 MG/0.4 ML SYRINGE SUBCUT SCH (02:50)
[2021-05-20] MEDS: methylPREDNISolone SOD SUC 40 MG/1 ML VIAL IV SCH ×4 (02:50→22:08)
[2021-05-20] MEDS: MEROPENEM 500 MG in SODIUM CHLORIDE 0.9% 100 ML IV SCH ×4 (02:50→22:11)
[2021-05-20] MEDS: PANTOPRAZOLE 40 MG VIAL IV SCH (02:53)
[2021-05-20 03:23] LABS: ABG Base Excess 7.7 MMOL/L (-2.5-2.5); ABG HCO3 36.4 MMOL/L (20-26); ABG Oxygen Saturation 88.3 % (95-100); ABG PH 7.266 (7.35-7.45); ABG PO2 59.6 MM HG (80-95); ABG TCO2 38.9 MMOL/L (23-27)
[2021-05-20 03:26] LABS: ABG PCO2 81.9 MM HG (35-48)
[2021-05-20 03:37] LABS: Basophils # 0.1 10*3/uL (0.0-0.2); Basophils % 0.2 % (0.0-0.8); Hematocrit 30.1 VOL% (42.0-52.0); Hemoglobin 9.2 GM/DL (14.0-18.0); Immature Granulocytes % 3.5 %; Lymphocytes # 0.5 10*3/uL (1.4-4.0); Lymphocytes % 1.4 % (21.2-54.2); Mean Corpuscular HGB Conc 30.6 GM/DL (32-36); Mean Corpuscular Volume 114.4 FL (87-102); Monocytes % 2.3 % (1.7-12.7); NRBC # 0.12 10*3/uL; Neutrophils % 92.6 % (38.7-73.9); Platelet Count 78 T/CUMM (130-400); Red Blood Count 2.63 MC/CUMM (3.8-5.5); Red Cell Distribution Width 18.5 % (9.3-17.3); White Blood Count 39.9 T/CUMM (4-12)
[2021-05-20 03:48] LABS: Osmolality,Calculated 314.4 MOS/KG (273-304); Potassium 5.2 MMOL/L (3.5-5.1)
[2021-05-20 03:58] LABS: Lymphocytes 2 % (20-55); Nucleated Red Blood Cells 2 (0-5); Segmented Neutrophils 97 % (50-85); Total Cells Counted 100
[2021-05-20 03:59] LABS: Hypochromasia Slight; Microcytosis Slight; Platelet Estimate Decreased
[2021-05-20] MEDS: VALPROIC ACID INJ 500 MG in SODIUM CHLORIDE 0.9% 100 ML IV SCH ×3 (04:26→22:12)
[2021-05-20] MEDS: PHENYLEPHRINE DRIP 40 MG/250 ML PREMIX IV PRN ×2 (04:49→15:15)
[2021-05-20] MEDS: METOPROLOL TARTRATE 5 MG/5 ML VIAL IV SCH ×3 (05:34→17:35)
[2021-05-20] MEDS: INSULIN REGULAR 100 UNIT/ML SUBCUT SCH ×3 (05:37→17:40)
[2021-05-20] MEDS: METOCLOPRAMIDE 10 MG/2 ML VIAL IV SCH ×2 (08:30→16:05)
[2021-05-20] MEDS: INSULIN GLARGINE 100 UNIT/ML SUBCUT SCH (08:30)
[2021-05-20] MEDS: ESCITALOPRAM 10 MG TABLET NG SCH (08:35)
[2021-05-20] MEDS: DESITIN 4OZ/NYSTATIN 15 GRAM MIXTURE PASTE TOP SCH ×2 (11:15→22:16)
[2021-05-20] MEDS: MIDAZOLAM 100 MG in SODIUM CHLORIDE 0.9% 80 ML IV PRN ×2 (12:25→22:17)
[2021-05-20] MEDS: FLUCONAZOLE INJ 200 MG/100 ML PREMIX IV SCH (14:15)
[2021-05-20 18:53] VITALS: BP 105/60
[2021-05-21] MEDS: INSULIN REGULAR 100 UNIT/ML SUBCUT SCH ×3 (00:02→12:29)
[2021-05-21] MEDS: PHENYLEPHRINE DRIP 40 MG/250 ML PREMIX IV PRN ×2 (00:04→09:04)
[2021-05-21] MEDS: METOCLOPRAMIDE 10 MG/2 ML VIAL IV SCH ×2 (00:08→08:13)
[2021-05-21] MEDS: METOPROLOL TARTRATE 5 MG/5 ML VIAL IV SCH ×3 (00:10→12:15)
[2021-05-21] MEDS: MEROPENEM 500 MG in SODIUM CHLORIDE 0.9% 100 ML IV SCH ×2 (01:57→08:14)
[2021-05-21] MEDS: PANTOPRAZOLE 40 MG VIAL IV SCH (01:58)
[2021-05-21] MEDS: methylPREDNISolone SOD SUC 40 MG/1 ML VIAL IV SCH ×2 (02:02→08:14)
[2021-05-21] MEDS: ENOXAPARIN 40 MG/0.4 ML SYRINGE SUBCUT SCH (02:13)
[2021-05-21] MEDS: VALPROIC ACID INJ 500 MG in SODIUM CHLORIDE 0.9% 100 ML IV SCH ×2 (04:30→12:15)
[2021-05-21 05:02] LABS: ABG Base Excess 3.6 MMOL/L (-2.5-2.5); ABG HCO3 27.4 MMOL/L (20-26); ABG Oxygen Saturation 84.7 % (95-100); ABG PO2 60.4 MM HG (80-95); ABG TCO2 34.5 MMOL/L (23-27)
[2021-05-21 05:04] LABS: ABG PH 7.146 (7.35-7.45)
[2021-05-21 05:06] LABS: Basophils # 0.1 10*3/uL (0.0-0.2); Basophils % 0.2 % (0.0-0.8); Hematocrit 29.5 VOL% (42.0-52.0); Hemoglobin 9.1 GM/DL (14.0-18.0); Immature Granulocytes % 5.1 %; Immature Granulocytes Absolute 1.91 #; Lymphocytes # 0.5 10*3/uL (1.4-4.0); Lymphocytes % 1.4 % (21.2-54.2); Mean Corpuscular HGB Conc 30.8 GM/DL (32-36); Mean Corpuscular Volume 116.6 FL (87-102); Monocytes % 1.8 % (1.7-12.7); NRBC # 0.25 10*3/uL; Neutrophils % 91.5 % (38.7-73.9); Red Blood Count 2.53 MC/CUMM (3.8-5.5); Red Cell Distribution Width 18.5 % (9.3-17.3); White Blood Count 37.2 T/CUMM (4-12)
[2021-05-21 05:08] LABS: Platelet Count 76 T/CUMM (130-400)
[2021-05-21 05:29] LABS: Hypochromasia 1+; Lymphocytes 2 % (20-55); Microcytosis 1+; Nucleated Red Blood Cells 1 (0-5); Platelet Estimate Decreased; Segmented Neutrophils 97 % (50-85); Total Cells Counted 100
[2021-05-21 07:04] LABS: Albumin 1.6 G/DL (3.4-5.0); Bilirubin,Total 0.8 MG/DL (0.20-1.00); Calcium 7.7 MG/DL (8.5-10.1); Calcium 7.8 MG/DL (8.5-10.1); Osmolality,Calculated 305.8 MOS/KG (273-304); Osmolality,Calculated 306.8 MOS/KG (273-304); Potassium 5.2 MMOL/L (3.5-5.1); Total Protein 4.4 G/DL (6.4-8.2)
[2021-05-21] MEDS: INSULIN GLARGINE 100 UNIT/ML SUBCUT SCH (08:08)
[2021-05-21] MEDS: ESCITALOPRAM 10 MG TABLET NG SCH (08:08)
[2021-05-21] MEDS: DESITIN 4OZ/NYSTATIN 15 GRAM MIXTURE PASTE TOP SCH (08:40)
[2021-05-21] MEDS ORDERED: LORazepam 2 MG/1 ML VIAL IV PRN (12:39)
== END 2021-05-21 13:52 | disposition expired | DRG 207 ==
LOC: EDBD → EDUNIT# → N.ED 23:34 → N.EDINP 04-28 01:46 → SUATTDRO 04-28 01:46 → N.ICU 04-28 02:05
PROVIDERS: ADMIT Phlebology; ATTEND Internal Medicine